=== PATIENT | male | born 1950 | race African-American/Black ===

== ENCOUNTER 2017-05-24 08:56 | Emergency (ER) | payer OTHER ==
[~2017-05-24] VITALS: Ht 175.3 cm; Wt 110.0 kg
[~2017-05-24 08:56] MED LIST: ALLO300T2 PO; ATEN50TA PO; DOXA8TAB65 PO; EZET10TA3 PO; FENO200C8 PO; GABA-526 PO; GABA300C16 PO; GLIM4TAB PO; INSU100C5 SQ; METF500T4 PO; TELM80TA2 PO; VERA120C9 PO
[2017-05-24 09:03] VITALS: Ht 175.3 cm; Wt 110.0 kg
[2017-05-24] MEDS ORDERED: ASPIRIN 325 MG TAB PO STA (09:59)
[2017-05-24] MEDS ORDERED: NITROGLYCERIN (SL) 0.4 MG TAB SL PRN (10:00)
[2017-05-24] MEDS ORDERED: VALS80TA2 PO (10:36)
[2017-05-24] MEDS ORDERED: VERA240T94 PO (10:37)
[2017-05-24] MEDS ORDERED: LANT3I SC (10:37)
[2017-05-24] MEDS ORDERED: ATOR20TA38 PO (10:37)
[2017-05-24] MEDS ORDERED: METF1000 PO (10:38)
[2017-05-24 10:42] LABS: ADD SCAN DIFF NO
[2017-05-24 10:52] LABS: BASOPHILS % 0.8 % (0.0-2.0); EOSINOPHILS # 0.1 10^3/ul (0.0-0.5); EOSINOPHILS % 2.4 % (0.0-7.0); HEMATOCRIT 37.4 % (42.0-52.0); HEMOGLOBIN 12.2 g/dl (14.0-18.0); LYMPHOCYTES # 1.7 10^3/ul (0.8-2.9); MEAN CORPUSCULAR HEMOGLOBIN 22.3 pg (29.0-33.0); MEAN CORPUSCULAR HGB CONC 32.6 g/dl (32.0-37.0); MEAN CORPUSCULAR VOLUME 68.5 fl (82.0-101.0); MEAN PLATELET VOLUME 9.8 fl (7.4-10.4); MONOCYTE # 0.4 10^3/ul (0.3-0.9); MONOCYTES % 8.1 % (0.0-11.0); NEUTROPHIL # 3.1 10^3/ul (1.6-7.5); NEUTROPHILS % 57.3 % (39.0-77.0); PLATELET COUNT 212 10^3/UL (140-415); RED BLOOD COUNT 5.46 10^6/ul (4.70-6.10); RED CELL DISTRIBUTION WIDTH 15.3 % (11.5-14.5); WHITE BLOOD COUNT 5.3 10^3/ul (4.8-10.8)
[2017-05-24 11:16] LABS: ALANINE AMINOTRANSFERASE 30 IU/L (13-69); ALBUMIN 4.3 g/dl (3.3-4.9); ALBUMIN/GLOBULIN RATIO 1.43; ALKALINE PHOSPHATASE 49 IU/L (42-121); ANION GAP 21 (8-16); ASPARTATE AMINO TRANSFERASE 19 IU/L (15-46); BILIRUBIN,INDIRECT 0.1 mg/dl (0-1.1); BILIRUBIN,TOTAL 0.1 mg/dl (0.2-1.3); BLOOD UREA NITROGEN 10 mg/dl (7-20); CALCIUM 9.8 mg/dl (8.4-10.2); CARBON DIOXIDE 25 mmol/L (21-31); CHLORIDE 101 mmol/L (97-110); CREATINE KINASE 312 IU/L (23-200); CREATININE 0.95 mg/dl (0.61-1.24); GLUCOSE 145 mg/dl (70-220); POTASSIUM 4.3 mmol/L (3.5-5.1); SODIUM 143 mmol/L (135-144); TOTAL PROTEIN 7.3 g/dl (6.1-8.1)
[2017-05-24 11:18] LABS: INR 0.93; PARTIAL THROMBOPLASTIN TIME 23.5 Sec (25.0-35.0); PROTIME 12.5 Sec (12.2-14.2)
[2017-05-24 11:27] LABS: B-TYPE NATRIURETIC PEPTIDE 87 PG/ML (0-125)
[2017-05-24 11:28] LABS: CK-MB 1.52 ng/ml (0.0-2.4); TROPONIN-I < 0.012 ng/ml (0.00-0.12)
--- NOTE | 2017-05-24 12:14 | RADRPT ---
PROCEDURE: XR Chest AP portable CLINICAL INDICATION: Chest pain TECHNIQUE: An AP portable radiograph of the chest was submitted. COMPARISON: 05/16/2013 FINDINGS: Support Hardware: None Cardiovascular: The cardiovascular silhouette appears unremarkable. Lung Mejía: The lung mejía appear clear with no nodule, alveolar infiltrate, or interstitial promi nence evident. Pleural Spaces: No pneumothorax or pleural effusion is identified. Osseous Structures: The osseous structures appear intact. Soft Tissues: The soft tissues appear generous. IMPRESSION: Stable and unremarkable portable chest. Physician Gloria Date Time Electronically viewed and signed by Suze Hernández Physician on 05/24/2017 12:13 /
[2017-05-24] MEDS ORDERED: ONDANSETRON 4 MG INJ IV PRN ×2 (13:00→16:00)
[2017-05-24] MEDS ORDERED: ACETAMINOPHEN 325 MG TAB PO PRN ×2 (13:00→16:00)
[2017-05-24 13:01] VITALS: TEMP 98
--- NOTE | 2017-05-24 13:26 | RADRPT ---
PROCEDURE: CT Brain without contrast. CLINICAL INDICATION: Headache for 1 week. Dizziness. TECHNIQUE: A CT of the brain without contrast was performed utilizing axial sections from the skul l base through the vertex. The patient was scanned without intravenous contrast enhancement. Sagitta l and coronal reformatted images were obtained using the data from the axial images. Total exam DLP is 720.23 mGy-cm. CTDIvol is 44.77 mGy. One or more of the following dose reduction techniques we re used: Automated exposure control, adjustment of the mA and/or kV according to patient size, use o f iterative reconstruction technique. COMPARISON: None available FINDINGS: There is normal meza-white matter differentiation. The ventricles and cisterns are normal. There is no intracranial hemorrhage or space-occupying lesion. There is no skull fracture or lytic lesion. IMPRESSION: 1. Normal noncontrast CT scan of the brain. RPTAT: QQ .Wilfrid Fernandez MD, MD Date Time Electronically viewed and signed by .Wilfrid Fernandez MD, on 05/24/2017 13:26 .R/
--- NOTE | 2017-05-24 14:32 | ERA ---
ER Documentation Chief Complaint Date/Time DATE: 05/24/17 TIME: 14:26 Chief Complaint haskins, chest disconfort x 1 week, (TATY CHAVES) HPI This is a very pleasant 66-year-old -[place] male with a known history of insulin-dependent diabetes mellitus that presents to the emergency department complaining of a sudden onset of bilateral chest pain that has been intermittent for the past week indicates the pain was a sharp shooting pain however this morning upon awakening he indicated the pain in the chest became more of a dull ache and pressure-like sensation on the left side of his chest. He indicated there is no radiation of the chest pressure to the neck arm back or jaw. He also indicates for the past week since the onset of the chest discomfort he has been having a bilateral pulsating headache, with no change in vision, no neck pain, and he states this is not the worst headache of his life. He had a similar headache one month ago. He did have associated symptoms with the chest pain of nausea but denied any diaphoresis or emesis. He denies any recent travel or prolonged immobilization. He has no shortness of breath at rest or exertion. The patient was scheduled to see a bench molder on an outpatient basis in the next 2 weeks but given that his symptoms worsened he immediately came to the emergency department to be further evaluated. He has had insulin-dependent diabetes for the past 13 years and indicates he is compliant with his medications. He does not smoke tobacco. He stated the chest pain is 6 out of 10 in intensity with no alleviating or exacerbating factors. (TATY CHAVES) ROS All systems reviewed and are negative except as per history of present illness. (TATY CHAVES) Medications Home Meds Reported Medications Metformin Hcl* (Metformin Hcl*) 1,000 Mg Tablet, 1000 MG PO WITH BREAKFAST DINNE , #30 TAB 05/24/17 Insulin Glargine* (Lantus*) 100 Unit/Ml Soln, 52 UNIT SC QHS, #1 VIAL 05/24/17 Atorvastatin Calcium* (Atorvastatin Calcium*) 20 Mg Tablet, 20 MG PO QHS, #30 TAB 05/24/17 Verapamil Hcl* (Verapamil ER*) 240 Mg Tablet.er, 240 MG PO DAILY, TAB.SA 05/24/17 Valsartan* (Diovan*) 80 Mg Tablet, 80 MG PO DAILY, TAB 05/24/17 Atenolol* (Atenolol*) 50 Mg Tablet, 50 MG PO AM 02/16/13 Doxazosin Mesylate* (Doxazosin Mesylate*) 8 Mg Tablet, 8 MG PO HS 02/16/13 Discontinued Reported Medications Fenofibrate, Micronized* (Fenofibrate*) 200 Mg Capsule, 200 MG PO DAILY 02/16/13 Ezetimibe* (Zetia*) 10 Mg Tablet, 10 MG PO AM 02/16/13 Gabapentin* (Gabapentin*) 600 Mg Tablet, 600 MG PO HS 02/16/13 Gabapentin* (Gabapentin*) 300 Mg Capsule, 300 MG PO AM 02/16/13 Allopurinol* (Allopurinol*) 300 Mg Tablet, 300 MG PO AM 02/16/13 Verapamil Hcl* (Verapamil Hcl*) 120 Mg Cap24h.pel, 240 MG PO BID 02/16/13 Telmisartan (Micardis) 80 Mg Tablet, 80 MG PO AM 02/16/13 Insulin Glargine,Hum.rec.anlog (Lantus) 100 U/Ml Cartridge, 50 SQ HS 02/16/13 Glimepiride* (Glimepiride*) 4 Mg Tablet, 4 MG PO BID 02/16/13 Metformin* (Glucophage*) 500 Mg Tab, 500 MG PO BID 02/16/13 Allergies Allergies: Coded Allergies: No Known Allergy (Verified , 05/24/17) PMhx/Soc History of Surgery: No Anesthesia Reaction: No Hx Neurological Disorder: No Hx Respiratory Disorders: No Hx Cardiac Disorders: Yes (HTN, HIGH CHOLESTEROL) Hx Psychiatric Problems: No Hx Miscellaneous Medical Probl: Yes (MIGRAINES, GOUT, VERTIGO) Hx Alcohol Use: No (DRINKS BEER ONCE A WEEK) Hx Substance Use: No Hx Tobacco Use: No Smoking Status: Unknown if ever smoked (TATY CHAVES) Physical Exam Vitals Vital Signs Date Time Temp Pulse Resp B/P Pulse Ox O2 Delivery O2 Flow Rate FiO2 05/24/17 16:43 50 19 150/90 99 Nasal Cannula 2.0 05/24/17 13:01 98.0 48 16 152/97 99 Room Air 05/24/17 10:40 Nasal Cannula 2 05/24/17 09:03 98.1 51 18 146/83 99 (MARCO A ARELLANO A. ) Physical Exam Constitutional:Well-developed. Well-nourished. HEENT:Normocephalic. Atraumatic.Pupils were equal round reactive to light. Moist mucous membranes.No tonsillar exudates. Funduscopy exam shows sharp optic disc bilaterally venous pulsations are present Neck: No nuchal rigidity. No lymphadenopathy. No posterior cervical spine tenderness or step-offs. Respiratory: Not using accessory muscles of respiration.Lungs were clear to auscultation bilaterally. No rhonchi. No rales. No wheezing. Cardiovascular: Regular rate regular rhythm.No murmurs. No rubs were appreciated.S1, S2 normal. Distal pulses are palpable 2+ bilaterally. No reproducible chest wall tenderness crepitus or ecchymosis. GI: Abdomen was soft. Nontender. Non Distended. No pulsatile abdominal masses or bruits. No rebound. No guarding. Bowel sounds were present and normal. Muscle skeletal: Full range of motion of both the upper and lower extremities bilaterally.Normal muscle tone.No assymetrical calf tenderness or swelling. Skin: No petechia, no purpura. No lesions on the palms or the soles of the feet. No maculopapular rash. NEURO: Patient was alert, awake, orientated x3.No facial droop. Gait observed and normal with no ataxia.Speech had regular rate and rhythm. No focal neurological deficits. (TATY CHAVES) Result Diagram: 05/24/17 1034 05/24/17 1034 Results 24 hrs Laboratory Tests Test 05/24/17 10:34 White Blood Count 5.310^3/ul Red Blood Count 5.4610^6/ul Hemoglobin 12.2g/dl Hematocrit 37.4% Mean Corpuscular Volume 68.5fl Mean Corpuscular Hemoglobin 22.3pg Mean Corpuscular Hemoglobin Concent 32.6g/dl Red Cell Distribution Width 15.3% Platelet Count 00889^3/UL Mean Platelet Volume 9.8fl Neutrophils % 57.3% Lymphocytes % 31.0% Monocytes % 8.1% Eosinophils % 2.4% Basophils % 0.8% Nucleated Red Blood Cells % 0.0/100WBC Neutrophils # 3.110^3/ul Lymphocytes # 1.710^3/ul Monocytes # 0.410^3/ul Eosinophils # 0.110^3/ul Basophils # 0.010^3/ul Nucleated Red Blood Cells # 0.010^3/ul Prothrombin Time 12.5Sec Prothrombin Time Ratio 1.0 INR International Normalized Ratio 0.93 Activated Partial Thromboplast Time 23.5Sec Sodium Level 143mmol/L Potassium Level 4.3mmol/L Chloride Level 101mmol/L Carbon Dioxide Level 25mmol/L Anion Gap 21 Blood Urea Nitrogen 10mg/dl Creatinine 0.95mg/dl Glucose Level 145mg/dl Calcium Level 9.8mg/dl Total Bilirubin 0.1mg/dl Direct Bilirubin 0.00mg/dl Indirect Bilirubin 0.1mg/dl Aspartate Amino Transf (AST/SGOT) 19IU/L Alanine Aminotransferase (ALT/SGPT) 30IU/L Alkaline Phosphatase 49IU/L Creatine Kinase 312IU/L Creatine Kinase Index 0.5 Creatinine Kinase MB (Mass) 1.52ng/ml Troponin I < 0.012ng/ml B-Type Natriuretic Peptide 87PG/ML Total Protein 7.3g/dl Albumin 4.3g/dl Globulin 3.00g/dl Albumin/Globulin Ratio 1.43 Current Medications Medications (Trade) Dose Ordered Sig/Carie Route PRN Reason Start Time Stop Time Status Last Admin Dose Admin Aspirin (Aspirin) 325 mg ONCE STAT PO 05/24/17 09:59 05/24/17 10:01 DC 05/24/17 10:38 Nitroglycerin (Nitroglycerin (Sl Tab) 0.4 Mg) 1 tab Q5M UP TO 3 DOSES PRN SL CHEST PAIN 05/24/17 10:00 Ondansetron HCl (Zofran Inj) 4 mg ER BRIDGE PRN IV NAUSEA AND/OR VOMITING 05/24/17 13:00 05/25/17 12:59 Acetaminophen (Tylenol Tab) 650 mg ER BRIDGE PRN PO MILD PAIN/FEVER 05/24/17 13:00 05/25/17 12:59 Morphine Sulfate (morphine) 4 mg ONCE STAT IV 05/24/17 15:47 05/24/17 15:48 DC Ondansetron HCl (Zofran Inj) 4 mg ONCE STAT IV 05/24/17 15:47 05/24/17 15:48 DC Atenolol (Tenormin) 50 mg AM PO 05/25/17 09:00 Atorvastatin Calcium (Lipitor) 20 mg QHS PO 05/24/17 21:00 Doxazosin Mesylate (Cardura) 8 mg HS PO 05/24/17 21:00 Insulin Glargine (Lantus) 52 unit QHS SC 05/24/17 21:00 Metformin HCl (Glucophage) 1,000 mg WITH BREAKFAST DINNE PO 05/24/17 18:00 Valsartan (Diovan) 80 mg DAILY PO 05/25/17 09:00 Verapamil HCl 240 mg 240 mg DAILY PO 05/25/17 09:00 Sodium Chloride (NS) 1,000 ml @ 80 mls/hr [id number] IV 05/24/17 15:46 IV Flush (NS 3 ml) 3 ml PER PROTOCOL IV 05/24/17 16:00 Ondansetron HCl (Zofran Inj) 4 mg Q6H PRN IV NAUSEA AND/OR VOMITING 05/24/17 16:00 Acetaminophen (Tylenol Tab) 650 mg Q6H PRN PO PAIN LEVEL 1-3 OR FEVER 05/24/17 16:00 Acetaminophen (Tylenol Supp) 650 mg Q6H PRN [place] PAIN LEVEL 1-3 OR FEVER 05/24/17 16:00 Acetaminophen/ Hydrocodone Bitart ([place] (5/325)) 1 tab Q6H PRN PO MODERATE PAIN LEVEL 4-6 05/24/17 16:00 Acetaminophen/ Hydrocodone Bitart ([place] (5/325)) 2 tab Q6H PRN PO SEVERE PAIN LEVEL 7-10 05/24/17 16:00 Morphine Sulfate (morphine) 2 mg Q4H PRN IV SEVERE PAIN LEVEL 7-10 05/24/17 16:00 Docusate Sodium (Colace) 100 mg Q12H PRN PO CONSTIPATION 05/24/17 16:00 Magnesium Hydroxide (Milk Of Mag) 30 ml DAILY PRN PO CONSTIPATION 05/24/17 16:00 Bisacodyl (Dulcolax Supp) 10 mg DAILY PRN [place] CONSTIPATION 05/24/17 16:00 Pantoprazole (Protonix Iv) 40 mg DAILY@06 IV 05/25/17 06:00 Heparin Sodium (Porcine) (Heparin (5000 Units/0.5 ml)) 5,000 unit Q12 SC 05/24/17 21:00 Insulin Aspart (Novolog Insulin Pen) NOVOLOG *MILD* ALGORITHM WITH MEALS BEDTIME SC 05/24/17 18:00 Miscellaneous Information (* Miscellaneous Pharmacy Order) Discontinue all previ... ONCE ONCE XX 05/24/17 16:00 05/24/17 16:01 DC Miscellaneous Information 1 ea NOTE XX 05/24/17 16:00 Glucose (Glutose) 15 gm Q15M PRN PO DECREASED GLUCOSE 05/24/17 16:00 Glucose (Glutose) 22.5 gm Q15M PRN PO DECREASED GLUCOSE 05/24/17 16:00 Dextrose (D50w Syringe) 25 ml Q15M PRN IV DECREASED GLUCOSE 05/24/17 16:00 Dextrose (D50w Syringe) 50 ml Q15M PRN IV DECREASED GLUCOSE 05/24/17 16:00 Glucagon (Glucagen) 1 mg Q15M PRN IM DECREASED GLUCOSE 05/24/17 16:00 Glucose (Glutose) 15 gm Q15M PRN BUCCAL DECREASED GLUCOSE 05/24/17 16:00 (MARCO A ARELLANO DO) Procedures/MDM The patient presented to the emergency department with chest pain. My clinical evaluation and workup was to distinguish minor causes of chest pain from acute life threatening conditions such as myocardial infarction, pulmonary embolism, aortic dissection, esophageal rupture, cardiac tamponade. The patient was placed on a central office worker and continuous pulse oximetry. IV access established by nursing staff. The patient received 325 mg of aspirin and nitroglycerin. He does take 81 mg of baby aspirin on a daily basis. He stated this mildly improved his chest discomfort but did not completely resolve it. 12 Lead EKG tracing ordered and reviewed by myself showed: Sinus bradycardia 52 bpm and no arrhythmia. GA interval prolonged at 206 ms in all leads consistent with a first-degree AV block. QRS duration normal. No ST segment elevation No ST segment depression. No changes consistent with acute ischemia. I obtained a 1 view chest radiograph which showed no infiltrates no cardio megaly and no pulmonary vascular congestion. The patient also presented to the emergency department with a subacute headache that began within weeks of onset. My differential diagnosis included but was not limited to chronic subdural hematoma, brain tumor, brain abscess, chronic sinusitis, temporal arteritis, temporomandibular joint syndrome, psuedotumor cerebri, glaucoma, migrane, HTN, intracranial hemorrhage or cerebral ischemia. This was not the patients worse headache of their life. The patient had a complete neurologic and fundoscopic exam performed by myself that was normal with no focal neurological deficits or retinal hemorrhage. The patient stated this headache was not severe or distinct from other headaches and the history with the physical exam findings did not likely suggest SAH. Therefore, I did not feel it was clinically necessary to perform a lumbar puncture and CSF analysis. I obtained a CT scan of the patient's head which showed no acute intracerebral hemorrhage mass-effect or midline shift Given the patient's multiple comorbidities and high cardiac risk factors the patient will be admitted for observation to receive serial 12-lead EKG tracings and cardiac set of enzymes to the telemetry service under the care of the hospitalist Dr. Berkowitz (TATY CHAVES) Patient told the nurse he wants to leave [facility]. I did speak with the patient at bedside. His family is also at the bedside. The patient states he is tired of sitting here for several hours without getting up bed. I discussed with him the necessity to be admitted for the hospital for a cardiac workup. I did tell him that if he leaves the hospital he runs a risk of cardiac arrest and . The patient says he understands the risks and "all take that chance". I discussed with him signs and symptoms to call an ambulance for. Patient is awake and alert oriented and coherent to make decisions. His and daughter at the bedside. He agrees to sign the AMA form (MARCO A ARELLANO DO) Departure Diagnosis: Primary Impression: Chest pain in adult Additional Impression: Migraine headache Qualified Code: G43.019 - Intractable migraine without aura and without status migrainosus Condition: Stable TATY CHAVES May 24, 2017 14:32 MARCO A ARELLANO DO May 24, 2017 17:01
[2017-05-24] MEDS ORDERED: SOD CHLORIDE 0.9% 1,000 ML IV SCH (15:46)
[2017-05-24] MEDS ORDERED: ONDANSETRON 4 MG INJ IV STA (15:47)
[2017-05-24] MEDS ORDERED: morphine 4 MG/ML VIAL IV STA (15:47)
[2017-05-24] MEDS ORDERED: GLUCOSE GEL 15 GRAM TUBE BUCCAL PRN (16:00)
[2017-05-24] MEDS ORDERED: MAGNESIUM HYDROXIDE 30ML CUP PO PRN (16:00)
[2017-05-24] MEDS ORDERED: morphine 2 MG INJ IV PRN (16:00)
[2017-05-24] MEDS ORDERED: DOCUSATE SODIUM 100 MG CAP PO PRN (16:00)
[2017-05-24] MEDS ORDERED: BISACODYL 10 MG SUPP PR PRN (16:00)
[2017-05-24] MEDS ORDERED: HYDROCODONE/APAP (5/325) TAB PO PRN ×2 (16:00)
[2017-05-24] MEDS ORDERED: GLUCOSE GEL 15 GRAM TUBE PO PRN ×2 (16:00)
[2017-05-24] MEDS ORDERED: GLUCAGON 1 MG INJ IM PRN (16:00)
[2017-05-24] MEDS ORDERED: DEXTROSE 50% 50 ML SYRINGE IV PRN ×2 (16:00)
[2017-05-24] MEDS ORDERED: NACL 0.9% 3 ML SYG IV SCH (16:00)
[2017-05-24] MEDS ORDERED: ACETAMINOPHEN 650 MG SUPP PR PRN (16:00)
--- NOTE | 2017-05-24 16:20 | HP ---
Date/Time of Note Date/Time of Note DATE: 05/24/17 TIME: 16:14 Assessment/Plan VTE Prophylaxis VTE Prophylaxis Intervention: heparin Lines/Catheters IV [facility]ine [facility] Assessment/Plan Chief Complaint/Hosp Course Assessment and plan 1. Chest pain. Patient noted with extensive history of heart disease. Will get engraver to follow. Follow-up on echocardiogram. Follow-up trend troponin levels. 2. Essential hypertension. Will resume antihypertensives and adjust as needed 3. Dyslipidemia. Follow-up on fasting lipid panel. Will resume statin medication. 4. Diabetes. Follow-up on A1c. Start on insulin regimen. 5. BPH. Will resume patient's doxazosin 6. Obesity. Weight reduction advised Discussed plan of care with Dr. Keating Admission process time greater than 30 minutes Problems: HPI/ROS Admit Date/Time Admit Date/Time Hx of Present Illness There is a 66-year-old male with history of hypertension, dyslipidemia, diabetes , BPH, migraines, extensive family history of coronary artery disease who came [facility] due to reports of chest pain. According to the patient had been having intermittent chest pain for the past 2 weeks that was 8 out of 10 in intensity that radiated from the right side of the chest to the left side of the chest and down his left arm. He did report that incidences usually occurred at night when he would lie down. He denied any reproducible chest pain upon palpation. Did report chest pain was also sharp-like in nature. He did come to [facility] due to the aformentiond issues. Upon examination he did have further troponin level drawn that was initially negative but he did noted to have creatinine kinase of 312. Additionally he was noted with some slight anemia with hemoglobin of 12.2 and hematocrit of 37.4. He remained afebrile. Blood pressure was seen as high as 152/97. He denied any shortness of breath on exertion or chest pain on exertion or nausea or vomiting or any other associated symptoms or any sick contacts prior to this incidence. We will evaluate him for the aformentiond issues. ROS 12 point review of systems obtained and entirely negative except that mentioned in history of present illness PMH/Family/Social Past Medical History Medical/surgical history hypertension, dyslipidemia, diabetes, BPH, migraines, extensive family history of coronary artery disease Social History Alcohol Use: none Smoking Status: Former smoker Drug Use: none Exam/Review of Systems Vital Signs Vitals Vital Signs Date Time Temp Pulse Resp B/P Pulse Ox O2 Delivery O2 Flow Rate FiO2 05/24/17 13:01 98.0 48 16 152/97 99 Room Air 05/24/17 10:40 2 Exam Constitutional: alert, oriented Psych: nl mood/affect, No anxiety Head: normocephalic Respiratory: clear to auscultation, normal air movement Cardiovascular: other (bradycardia) Gastrointestinal: non-tender, soft Musculoskeletal: nl extremities to inspection Neurological: FAMILY LAW MEDIATOR II-XII intact, nl mental status, nl speech Labs Result Diagram: 05/24/17 1034 05/24/17 1034 Medications Medications Current Medications Atenolol (Tenormin) 50 mg AM PO ; Start 05/25/17 at 09:00 Atorvastatin Calcium (Lipitor) 20 mg QHS PO ; Start 05/24/17 at 21:00 Doxazosin Mesylate (Cardura) 8 mg HS PO ; Start 05/24/17 at 21:00 Insulin Glargine (Lantus) 52 unit QHS SC ; Start 05/24/17 at 21:00 Valsartan (Diovan) 80 mg DAILY PO ; Start 05/25/17 at 09:00 Verapamil HCl 240 mg 240 mg DAILY PO ; Start 05/25/17 at 09:00 Sodium Chloride (NS) 1,000 ml @ 80 mls/hr [id number] IV ; Start 05/24/17 at 15:46 Ondansetron HCl (Zofran Inj) 4 mg Q6H PRN IV NAUSEA AND/OR VOMITING; Start at 16:00 Acetaminophen (Tylenol Tab) 650 mg Q6H PRN PO PAIN LEVEL 1-3 OR FEVER; Start at 16:00 Acetaminophen (Tylenol Supp) 650 mg Q6H PRN [place] PAIN LEVEL 1-3 OR FEVER; Start 05/24/17 at 16:00 Acetaminophen/ Hydrocodone Bitart ([place] (5/325)) 1 tab Q6H PRN PO MODERATE PAIN LEVEL 4-6; Start 05/24/17 at 16:00 Acetaminophen/ Hydrocodone Bitart ([place] (5/325)) 2 tab Q6H PRN PO SEVERE PAIN LEVEL 7-10; Start 05/24/17 at 16:00 Morphine Sulfate (morphine) 2 mg Q4H PRN IV SEVERE PAIN LEVEL 7-10; Start 05/24 at 16:00 Docusate Sodium (Colace) 100 mg Q12H PRN PO CONSTIPATION; Start 05/24/17 at 16: 00 Magnesium Hydroxide (Milk Of Mag) 30 ml DAILY PRN PO CONSTIPATION; Start at 16:00 Bisacodyl (Dulcolax Supp) 10 mg DAILY PRN [place] CONSTIPATION; Start 05/24/17 at 16 :00 Pantoprazole (Protonix Iv) 40 mg DAILY@06 IV ; Start 05/25/17 at 06:00 Heparin Sodium (Porcine) (Heparin (5000 Units/0.5 ml)) 5,000 unit Q12 SC ; Start 05/24/17 at 21:00 Miscellaneous Information 1 ea NOTE XX ; Start 05/24/17 at 16:00 Glucose (Glutose) 15 gm Q15M PRN PO DECREASED GLUCOSE; Start 05/24/17 at 16:00 Glucose (Glutose) 22.5 gm Q15M PRN PO DECREASED GLUCOSE; Start 05/24/17 at 16: 00 Dextrose (D50w Syringe) 25 ml Q15M PRN IV DECREASED GLUCOSE; Start 05/24/17 at 16:00 Dextrose (D50w Syringe) 50 ml Q15M PRN IV DECREASED GLUCOSE; Start 05/24/17 at 16:00 Glucagon (Glucagen) 1 mg Q15M PRN IM DECREASED GLUCOSE; Start 05/24/17 at 16:00 Glucose (Glutose) 15 gm Q15M PRN BUCCAL DECREASED GLUCOSE; Start 05/24/17 at 16 :00 LAURA DOS SANTOS May 24, 2017 16:20
[2017-05-24 16:43] VITALS: PULSE 50; RESP 19
[2017-05-24 17:14] VITALS: BP 130/82
[2017-05-24] MEDS ORDERED: metFORMIN 500 MG TAB PO SCH (18:00)
[2017-05-24] MEDS ORDERED: INSULIN ASPART [NOVOLOG] 3 ML PEN SC SCH (18:00)
[2017-05-24] MEDS ORDERED: ATORVASTATIN 20 MG TAB PO SCH (21:00)
[2017-05-24] MEDS ORDERED: INSULIN GLARGINE [LANtus] 3 ML PEN SC SCH (21:00)
[2017-05-24] MEDS ORDERED: HEPARIN 5,000 UNIT/0.5 ML VIAL SC SCH (21:00)
[2017-05-24] MEDS ORDERED: DOXAZOSIN 4 MG TAB PO SCH (21:00)
[2017-05-25] MEDS ORDERED: PANTOPRAZOLE 40 MG INJ IV SCH (06:00)
[2017-05-25] MEDS ORDERED: VALSARTAN 80 MG TAB PO SCH (09:00)
[2017-05-25] MEDS ORDERED: VERAPAMIL (SR) 240 MG TAB PO SCH (09:00)
[2017-05-25] MEDS ORDERED: ATENOLOL 50 MG TAB PO SCH (09:00)
== END 2017-05-24 17:14 | disposition left against medical advice (07) ==
LOC: E/R 08:56
DX: R07.9 Chest pain, unspecified (principal); G43.019 Migraine without aura, intractable, without status migrainosus; I10 Essential (primary) hypertension; E11.9 Type 2 diabetes mellitus without complications; Z79.4 Long term (current) use of insulin; Z79.84 Long term (current) use of oral hypoglycemic drugs
CPT/HCPCS: 70450; 71010; 80053; 82550; 82553; 83880; 84484; 85025; 85610; 85730; 93005; 99285; J1815; J7030

== ENCOUNTER 2019-03-05 13:04 | Inpatient (IN) | payer OTHER ==
[~2019-03-05] VITALS: Ht 175.3 cm; Wt 96.2 kg
[~2019-03-05 13:04] MED LIST changes: -ALLO300T2 PO; +ATOR20TA38 PO; -EZET10TA3 PO; -FENO200C8 PO; -GABA-526 PO; -GABA300C16 PO; -GLIM4TAB PO; -INSU100C5 SQ; +LANT3I SC; +METF100010 PO; -METF500T4 PO; -TELM80TA2 PO; +VALS80TA2 PO; -VERA120C9 PO; +VERA240T13 PO
[2019-03-05] MEDS ORDERED: NITROGLYCERIN 2% 1 GM OINT PKT TD STA (15:37)
[2019-03-05] MEDS ORDERED: ASPIRIN 81 MG TAB PO STA (15:37)
[2019-03-05] MEDS ORDERED: NITROGLYCERIN (SL) 0.4 MG TAB SL PRN ×2 (16:00→18:00)
[2019-03-05] MEDS ORDERED: LANT3I SC (16:21)
[2019-03-05] MEDS ORDERED: NABU-81 PO (16:22)
[2019-03-05] MEDS ORDERED: BACL10TA PO (16:22)
[2019-03-05] MEDS ORDERED: METF100010 PO (16:23)
[2019-03-05] MEDS ORDERED: VALS80TA2 PO (16:23)
[2019-03-05] MEDS ORDERED: ATOR40TA68 PO (16:23)
[2019-03-05] MEDS ORDERED: METO-335 PO (16:24)
[2019-03-05] MEDS ORDERED: VERA240T13 PO (16:24)
[2019-03-05] MEDS ORDERED: DOXA8TAB65 PO (16:25)
[2019-03-05] MEDS ORDERED: ACETAMINOPHEN 325 MG TAB PO PRN (17:00)
[2019-03-05] MEDS ORDERED: ONDANSETRON 4 MG INJ IV PRN ×2 (17:00→18:00)
[2019-03-05] MEDS ORDERED: BACLOFEN 10 MG TAB PO PRN (18:00)
[2019-03-05] MEDS ORDERED: HYDROCODONE/APAP (5/325) TAB PO PRN (18:00)
[2019-03-05] MEDS ORDERED: DOCUSATE SODIUM 100 MG CAP PO PRN (18:00)
[2019-03-05] MEDS ORDERED: NACL 0.9% 3 ML SYG IV SCH (18:00)
[2019-03-05] MEDS ORDERED: morphine 2 MG INJ IV PRN (18:00)
[2019-03-05] MEDS ORDERED: MAGNESIUM HYDROXIDE 30ML CUP PO PRN (18:00)
--- NOTE | 2019-03-05 18:01 | HP ---
Date/Time of Note Date/Time of Note DATE: 03/05/19 TIME: 17:52 Assessment/Plan VTE Prophylaxis SCD applied (from Nsg): Yes Pharmacological prophylaxis: heparin Lines/Catheters IV Catheter Type (from Nrsg): [place] Assessment/Plan Assessment/Plan 1. Acute atypical chest pain - Cardiology consulted for further recommendations given risk factors - Trop negative x1 and will continue to trend - initial EKG negative for acute ST changes - Nitro, O2, and morphine PRN - will check Lipid panel and TSH - ECHO ordered 2. Diabetes Mellitus - A1c ordered - continued home insulin - hold PO medications - ISS and accuchecks 3. HTN - continue home medications - adjust as needed 4. HLD - continue statin 5. Diet - Cardiac/Carb 6. DVT ppx - Heparin 7. Disposition - Admit to telemetry for ACS workup Result Diagram: 03/05/19 1559 03/05/19 1559 Results 24hrs Laboratory Tests Test 03/05/19 15:59 White Blood Count 8.7 # Red Blood Count 5.72 Hemoglobin 12.2 L Hematocrit 38.5 L Mean Corpuscular Volume 67.3 L Mean Corpuscular Hemoglobin 21.3 L Mean Corpuscular Hemoglobin Concent 31.7 L Red Cell Distribution Width 15.8 H Platelet Count 232 Mean Platelet Volume 9.9 Immature Granulocytes % 0.300 Neutrophils % 80.1 H Lymphocytes % 13.2 L Monocytes % 5.8 Eosinophils % 0.3 Basophils % 0.3 Nucleated Red Blood Cells % 0.0 Immature Granulocytes # 0.030 Neutrophils # 7.0 Lymphocytes # 1.2 Monocytes # 0.5 Eosinophils # 0.0 Basophils # 0.0 Nucleated Red Blood Cells # 0.0 Sodium Level 142 Potassium Level 4.7 Chloride Level 106 Carbon Dioxide Level 24 Anion Gap 12 Blood Urea Nitrogen 20 Creatinine 1.09 Est Glomerular Filtrat Rate mL/min > 60 Glucose Level 194 Calcium Level 10.1 Troponin I < 0.012 HPI/ROS Admit Date/Time Admit Date/Time 03/05/19 Hx of Present Illness 68 yo M with PMH DM, HTN, and HLD presented to ED with acute left sided chest pain that started at 12pm while he was sitting at rest. Patient describes pain as severe, as if someone was sitting on him, radiating to left arm, worse with movement, nothing made it better. Associated with shortness of breath. Patient states pain latest 1.5 hours and has not experienced this pain in the past. Patient denies any dizziness, headache, nausea, vomiting, abdominal pain, or urinary issues. Patient has chronic diarrhea and currently undergoing GI workup as outpatient. Patient states his mother and sister both in the 70s of cardiac issues, and his brother at 48 of [place]. He admits to seeing a Director Cardiac 2 years ago at [facility] but does not remember their name and has not followed as outpatient. ROS All 12 systems reviewed and pertinent positives as per HPI. All others negative. Constitutional: No chills, No fatigue Eyes: No discharge ENT: No congestion Respiratory: shortness of breath; No cough, No sputum, No wheezing Cardiovascular: chest pain; No lightheadedness, No palpitations Gastrointestinal: diarrhea; No pain, No constipation, No nausea, No vomiting Genitourinary: No bleeding, No discharge, No flank pain Musculoskeletal: No back pain, No neck pain Skin: No laceration, No rash Neurologic: No confusion, No dizziness, No focal-weakness, No headache, No syncope Endocrine: no complaints Lymphatic: no complaints Psychological: nl mood/affect Immunologic: no complaints PMH/Family/Social Past Medical History Medical History: diabetes, high cholesterol, hypertension Medications Current Medications Nitroglycerin (Nitroglycerin (Sl Tab) 0.4 Mg) 1 tab Q5M UP TO 3 DOSES PRN SL .CHEST PAIN; Start 03/05/19 at 16:00 Ondansetron HCl (Zofran Inj) 4 mg ER BRIDGE PRN IV NAUSEA/VOMITING; Start 03/05/19 at 17:00; Stop 03/06/19 at 16:59 Acetaminophen (Tylenol Tab) 650 mg ER BRIDGE PRN PO .MILD PAIN 1-3 OR TEMP; Start 03/05/19 at 17:00; Stop 03/06/19 at 16:59 Coded Allergies: No Known Allergy (Verified , 03/05/19) Past Surgical History Past Surgical Hx: no surgical history Family History Significant Family History: heart disease Social History Alcohol Use: rarely Smoking Status: Former smoker Drug Use: none Exam/Review of Systems Vital Signs Vitals Vital Signs Date Temp Pulse Resp B/P (MAP) Pulse Ox O2 O2 Flow FiO2 Time Delivery Rate 03/05/19 65 18 158/89 99 Room Air 16:06 (112) 03/05/19 2 16:00 03/05/19 98.5 13:08 Exam Exam General: Patient lying in bed in no acute distress,answering questions appropriately HEENT: Atraumatic, normocephalic. PERRL, EOM intact Neck: Supple with full range of motion. midline Chest: Nontender Lungs: clear to auscultation bilaterally. no wheezing or rhonchi Heart: Normal S1-S2, Regular rhythm and rate. No murmur, S3, or S4 Abdomen: Soft , nontender, nondistended , bowel sounds are present. No guarding no rebound tenderness , No masses or organomegaly. No costovertebral temporal angle mass Extremities: Normal to inspection, no edema no cyanosis Neurologic: CN 2-12 intact. no focal deficits appreciated. motor and sensory intact Additional Comments Home medications reviewed PROCEDURE: XR Chest. CLINICAL INDICATION: Chest pain TECHNIQUE: Single portable view of the chest was obtained COMPARISON: 05/16/13 FINDINGS: The heart is enlarged. There is mild left lower lobe linear atelectasis. The lungs are otherwise clear. There is mild elevation of the right diaphragm. There is no pleural effusion or pneumothorax. RPTAT: AA IMPRESSION: Mild Cardiomegaly. Mild left lower lobe linear atelectasis. .Van Calvin MD, MD Date Time Electronically viewed and signed by .Van Calvin MD, MD on 03/05/2019 15:55 NEIL WALLACE MD Mar 05, 2019 18:01
--- NOTE | 2019-03-05 18:10 | ERD ---
ER Documentation Chief Complaint Chief Complaint chest pain (pressure)x 1.5 hours HPI Patient is a 68-year-old male with hypertension and diabetes who presents with chest pain. The patient has left arm pain as well. Symptoms started today. The pain comes and goes and last at 1.5 hours. It associated with shortness of breath. He has had no treatment as of yet. Upon review of old medical records this is the patient's third visit to the ER since 2012. He says that his primary doctor is Dr. Rai. ROS All systems reviewed and are negative except as per history of present illness. Medications Home Meds Reported Medications Doxazosin Mesylate* (Doxazosin Mesylate*) 8 Mg Tablet, 8 MG PO HS, TAB 03/05/19 Verapamil Hcl* (Verapamil ER*) 240 Mg Tablet.er, 240 MG PO DAILY, TAB.SA 03/05/19 Metoprolol Succinate* (Toprol XL*) 25 Mg Tab.sr.24h, 25 MG PO DAILY, #30 TAB 03/05/19 Metformin Hcl* (Metformin Hcl*) 1,000 Mg Tablet, 1000 MG PO WITH BREAKFAST DINNE, #60 TAB 03/05/19 Valsartan* (Diovan*) 80 Mg Tablet, 80 MG PO DAILY, TAB 03/05/19 Atorvastatin* (Atorvastatin*) 40 Mg Tablet, 40 MG PO QHS, #30 TAB 03/05/19 Nabumetone* (Nabumetone*) 500 Mg Tablet, 500 MG PO NEEDED, TAB 03/05/19 Baclofen* (Baclofen*) 10 Mg Tablet, 10 MG PO NEEDED, TAB 03/05/19 Insulin Glargine* (Lantus*) 100 Unit/Ml Soln, 38 UNIT SC QHS, #1 VIAL 03/05/19 Discontinued Reported Medications Metformin Hcl* (Metformin Hcl*) 1,000 Mg Tablet, 1000 MG PO WITH BREAKFAST DINNE, #30 TAB 05/24/17 Insulin Glargine* (Lantus*) 100 Unit/Ml Soln, 52 UNIT SC QHS, #1 VIAL 05/24/17 Atorvastatin Calcium* (Atorvastatin Calcium*) 20 Mg Tablet, 20 MG PO QHS, #30 TAB 05/24/17 Verapamil Hcl* (Verapamil ER*) 240 Mg Tablet.er, 240 MG PO DAILY, TAB.SA 05/24/17 Valsartan* (Diovan*) 80 Mg Tablet, 80 MG PO DAILY, TAB 05/24/17 Atenolol* (Atenolol*) 50 Mg Tablet, 50 MG PO AM 02/16/13 Doxazosin Mesylate* (Doxazosin Mesylate*) 8 Mg Tablet, 8 MG PO HS 02/16/13 Allergies Allergies: Coded Allergies: No Known Allergy (Verified , 03/05/19) PMhx/Soc History of Surgery: No Anesthesia Reaction: No Hx Neurological Disorder: No Hx Respiratory Disorders: No Hx Cardiac Disorders: Yes (HTN, HIGH CHOLESTEROL) Hx Psychiatric Problems: No Hx Miscellaneous Medical Probl: Yes (MIGRAINES, GOUT, VERTIGO) Hx Alcohol Use: No (DRINKS BEER ONCE A WEEK) Hx Substance Use: No Hx Tobacco Use: No Smoking Status: Former smoker FmHx Family History: coronary disease Physical Exam Vitals Vital Signs Date Temp Pulse Resp B/P (MAP) Pulse Ox O2 O2 Flow FiO2 Time Delivery Rate 03/05/19 63 18 135/76 99 Nasal 2.0 18:01 (95) Cannula 03/05/19 65 18 158/89 99 Room Air 16:06 (112) 03/05/19 Nasal 2 16:00 Cannula 03/05/19 98.5 96 18 151/77 98 13:08 (101) Physical Exam Const: No acute distress Head: Atraumatic Eyes: Normal Conjunctiva ENT: Normal External Ears, Nose and Mouth. Neck: Full range of motion. No meningismus. Resp: Clear to auscultation bilaterally Cardio: Regular rate and rhythm, no murmurs Abd: Soft, non tender, non distended. Normal bowel sounds Skin: No petechiae or rashes Back: No midline or flank tenderness Ext: No cyanosis, or edema Neur: Awake and alert Psych: Normal Mood and Affect Result Diagram: 03/05/19 1559 03/05/19 1559 Results 24 hrs Laboratory Tests Test 03/05/19 15:59 White Blood Count 8.7 10^3/ul Red Blood Count 5.72 10^6/ul Hemoglobin 12.2 g/dl Hematocrit 38.5 % Mean Corpuscular Volume 67.3 fl Mean Corpuscular Hemoglobin 21.3 pg Mean Corpuscular Hemoglobin Concent 31.7 g/dl Red Cell Distribution Width 15.8 % Platelet Count 232 10^3/UL Mean Platelet Volume 9.9 fl Immature Granulocytes % 0.300 % Neutrophils % 80.1 % Lymphocytes % 13.2 % Monocytes % 5.8 % Eosinophils % 0.3 % Basophils % 0.3 % Nucleated Red Blood Cells % 0.0 /100WBC Immature Granulocytes # 0.030 10^3/ul Neutrophils # 7.0 10^3/ul Lymphocytes # 1.2 10^3/ul Monocytes # 0.5 10^3/ul Eosinophils # 0.0 10^3/ul Basophils # 0.0 10^3/ul Nucleated Red Blood Cells # 0.0 10^3/ul Sodium Level 142 mmol/L Potassium Level 4.7 mmol/L Chloride Level 106 mmol/L Carbon Dioxide Level 24 mmol/L Anion Gap 12 Blood Urea Nitrogen 20 mg/dl Creatinine 1.09 mg/dl Est Glomerular Filtrat Rate mL/min > 60 mL/min Glucose Level 194 mg/dl Calcium Level 10.1 mg/dl Troponin I < 0.012 ng/ml Current Medications Medications Dose Sig/Carie Start Time Status Last (Trade) Ordered Route PRN Stop Time Admin Dose Reason Admin Aspirin 162 mg ONCE STAT 03/05/19 DC 03/05/19 (Aspirin) PO 15:37 16:04 03/05/19 15:38 1 inch ONCE STAT 03/05/19 DC 03/05/19 Nitroglycerin TD 15:37 16:04 03/05/19 15:38 (Nitroglyceri n 2% Oint) 1 tab Q5M UP TO 3 03/05/19 Nitroglycerin DOSES PRN 16:00 SL .CHEST (Nitroglyceri PAIN n (Sl Tab) 0.4 Mg) Ondansetron 4 mg ER BRIDGE 03/05/19 DC HCl (Zofran PRN IV 17:00 Inj) NAUSEA/VOMITI 03/05/19 18:03 NG 650 mg ER BRIDGE 03/05/19 DC Acetaminophen PRN PO 17:00 (Tylenol .MILD PAIN 03/05/19 18:03 Tab) 1-3 OR TEMP 40 mg QHS PO 03/05/19 Atorvastatin 21:00 Calcium (Lipitor) Baclofen 10 mg TID PRN 03/05/19 (Lioresal) PO muscle 18:00 spasms Doxazosin 8 mg HS PO 03/05/19 Mesylate 21:00 (Cardura) Insulin 38 units QHS SC 03/05/19 Glargine 21:00 (Lantus) Metoprolol 25 mg DAILY PO 03/06/19 Succinate 09:00 (Toprol Xl) Verapamil 240 mg DAILY PO 03/06/19 HCl 09:00 (Isoptin Sr) 80 mg DAILY PO 03/06/19 UNV Miscellaneous 09:00 Information IV Flush 3 ml PER 03/05/19 (NS 3 ml) PROTOCOL IV 18:00 Ondansetron 4 mg Q6H PRN 03/05/19 HCl (Zofran IV 18:00 Inj) NAUSEA/VOMITI NG Aspirin 81 mg DAILY PO 03/06/19 (Aspirin) 09:00 1 tab Q5M PRN 03/05/19 Nitroglycerin SL .CHEST 18:00 PAIN (Nitroglyceri n (Sl Tab) 0.4 Mg) 650 mg Q6H PRN 03/05/19 Acetaminophen PO .PAIN 1-3 18:00 (Tylenol OR TEMP Tab) 1 tab Q6H PRN 03/05/19 Acetaminophen PO .PAIN 4-6 18:00 / Hydrocodone Bitart ([place] (5/325)) Morphine 2 mg Q4H PRN 03/05/19 Sulfate IV .PAIN 18:00 (morphine) 7-10 Docusate 100 mg Q12H PRN 03/05/19 Sodium PO 18:00 (Colace) .CONSTIPATION Magnesium 30 ml DAILY PRN 03/05/19 Hydroxide PO 18:00 (Milk Of Mag) .CONSTIPATION 40 mg DAILY@06 03/06/19 Pantoprazole PO 06:00 (Protonix Tab) Heparin 5,000 unit Q8 SC 03/05/19 Sodium 22:00 (Porcine) (Heparin (5000 Units/1ml)) Discontinue ONCE ONCE 03/05/19 DC Miscellaneous current oral XX 18:00 sulfonylur... 03/05/19 18:07 Information (* Miscellaneous Pharmacy Order) ONCE ONCE 03/05/19 DC Miscellaneous HYPOGLYCEMIA XX 18:00 PROTOCOL 03/05/19 18:07 Information w... (* Miscellaneous Pharmacy Order) Insulin NOVOLOG WITH MEALS 03/05/19 Aspart *MILD* BEDTIME SC 18:00 (Novolog ALGORITHM Insulin Pen) Discontinue ONCE ONCE 03/05/19 DC Miscellaneous all previ... XX 18:00 03/05/19 18:07 Information (* Miscellaneous Pharmacy Order) Procedures/MDM Chest x-ray read by radiology. EKG #1 read by me: Rate/Rhythm: Regular rate and rhythm at a normal rate Intervals: Normal Impression: Flipped T waves diffusely EKG #2 read by me: Rate/Rhythm: Regular rate and rhythm at a normal rate Intervals: Normal Impression: Flipped T waves diffusely Patient is a 68-year-old male with hypertension and diabetes who presents with chest pain. I am concerned for potential acute coronary syndrome. I doubt pneumonia, pneumothorax, pulmonary embolism, or aortic dissection. The patient will be admitted to the care of the panel team to a telemetry observation bed. I have let Dr. Rai that the patient is being admitted as well. The patient was given aspirin and nitroglycerin empirically. Departure Diagnosis: Primary Impression: Chest pain Chest pain type: unspecified Qualified Codes: R07.9 - Chest pain, unspeci fied Condition: DEBORAH Lamb MD Mar 05, 2019 18:10
[2019-03-05] MEDS ORDERED: GLUCOSE GEL 15 GRAM TUBE BUCCAL PRN (18:30)
[2019-03-05] MEDS ORDERED: DEXTROSE 50% 50 ML SYRINGE IV PRN ×2 (18:30)
[2019-03-05] MEDS ORDERED: GLUCOSE GEL 15 GRAM TUBE PO PRN ×2 (18:30)
[2019-03-05] MEDS ORDERED: GLUCAGON 1 MG INJ IM PRN (18:30)
--- NOTE | 2019-03-05 19:05 | CONS ---
Assessment/Plan Assessment/Plan Hospital Course (Demo Recall) Chest pain rule out acute [place] Hypertension diabetes dyslipidemia Strong family history of coronary artery disease Continue with aspirin and beta-migel. Blood pressure controlled. Diabetic management as per internal medicine. Repeat troponin to rule out myocardial infarction. Patient currently chest pain-free and has nitroglycerin paste on Plan for Lexiscan stress test tomorrow if troponins are negative. Troponin is positive we will proceed with a coronary angiography Thank you for his referral. We will continue to follow along with you MARGAUX HOPE MD [facility] Consultation Date/Type/Reason Admit Date/Time 03/05/19 Date of Consultation: Mar 05, 2019 Type of Consult Cardiology Reason for Consultation chest pain Requesting Provider: NEIL WALLACE MD Date/Time of Note DATE: 03/05/19 TIME: 19:01 Hx of Present Illness Interventional cardiology consultation note Chief complaint: Chest pain Reason for consult: Chest pain History of present illness: Thank you for this referral. This is a pleasant 68-year-old -[place] gentleman with history of diabetes hypertension dyslipidemia and strong family history of coronary artery disease who presented to emergency room with complaint of sudden onset of left- sided chest pain. Patient said he was sleeping when he woke up suddenly with left-sided chest pain was very severe lasted for some time but he has completely resolved now. He does not have any chest pain or pressure when he walks. He said he has had a stress test done before a few years ago which was normal Discussed with physician discussed with his Allergies: No known drug allergies Medications were reviewed as per medical reconciliation sheet Family history: Multiple family members including his brother at young age had a heart attack Social history: Quit smoking 1990 Past medical history: Diabetes hypertension dyslipidemia Review of system: Patient denies all others except for above-mentioned Past Medical History Home Meds Reported Medications Doxazosin Mesylate* (Doxazosin Mesylate*) 8 Mg Tablet, 8 MG PO HS, TAB 03/05/19 Verapamil Hcl* (Verapamil ER*) 240 Mg Tablet.er, 240 MG PO DAILY, TAB.SA 03/05/19 Metoprolol Succinate* (Toprol XL*) 25 Mg Tab.sr.24h, 25 MG PO DAILY, #30 TAB 03/05/19 Metformin Hcl* (Metformin Hcl*) 1,000 Mg Tablet, 1000 MG PO WITH BREAKFAST DINNE, #60 TAB 03/05/19 Valsartan* (Diovan*) 80 Mg Tablet, 80 MG PO DAILY, TAB 03/05/19 Atorvastatin* (Atorvastatin*) 40 Mg Tablet, 40 MG PO QHS, #30 TAB 03/05/19 Nabumetone* (Nabumetone*) 500 Mg Tablet, 500 MG PO NEEDED, TAB 03/05/19 Baclofen* (Baclofen*) 10 Mg Tablet, 10 MG PO NEEDED, TAB 03/05/19 Insulin Glargine* (Lantus*) 100 Unit/Ml Soln, 38 UNIT SC QHS, #1 VIAL 03/05/19 Discontinued Reported Medications Metformin Hcl* (Metformin Hcl*) 1,000 Mg Tablet, 1000 MG PO WITH BREAKFAST DINNE, #30 TAB 05/24/17 Insulin Glargine* (Lantus*) 100 Unit/Ml Soln, 52 UNIT SC QHS, #1 VIAL 05/24/17 Atorvastatin Calcium* (Atorvastatin Calcium*) 20 Mg Tablet, 20 MG PO QHS, #30 TAB 05/24/17 Verapamil Hcl* (Verapamil ER*) 240 Mg Tablet.er, 240 MG PO DAILY, TAB.SA 05/24/17 Valsartan* (Diovan*) 80 Mg Tablet, 80 MG PO DAILY, TAB 05/24/17 Atenolol* (Atenolol*) 50 Mg Tablet, 50 MG PO AM 02/16/13 Doxazosin Mesylate* (Doxazosin Mesylate*) 8 Mg Tablet, 8 MG PO HS 02/16/13 Medications Current Medications Nitroglycerin (Nitroglycerin (Sl Tab) 0.4 Mg) 1 tab Q5M UP TO 3 DOSES PRN SL .CHEST PAIN; Start 03/05/19 at 16:00 Atorvastatin Calcium (Lipitor) 40 mg QHS PO ; Start 03/05/19 at 21:00 Baclofen (Lioresal) 10 mg TID PRN PO muscle spasms; Start 03/05/19 at 18:00 Doxazosin Mesylate (Cardura) 8 mg HS PO ; Start 03/05/19 at 21:00 Insulin Glargine (Lantus) 38 units QHS SC ; Start 03/05/19 at 21:00 Metoprolol Succinate (Toprol Xl) 25 mg DAILY PO ; Start 03/06/19 at 09:00 Verapamil HCl (Isoptin Sr) 240 mg DAILY PO ; Start 03/06/19 at 09:00 Miscellaneous Information 80 mg DAILY PO ; Start 03/06/19 at 09:00; Status UNV IV Flush (NS 3 ml) 3 ml PER PROTOCOL IV ; Start 03/05/19 at 18:00 Ondansetron HCl (Zofran Inj) 4 mg Q6H PRN IV NAUSEA/VOMITING; Start 03/05/19 at 18:00 Aspirin (Aspirin) 81 mg DAILY PO ; Start 03/06/19 at 09:00 Nitroglycerin (Nitroglycerin (Sl Tab) 0.4 Mg) 1 tab Q5M PRN SL .CHEST PAIN; Start 03/05/19 at 18:00 Acetaminophen (Tylenol Tab) 650 mg Q6H PRN PO .PAIN 1-3 OR TEMP; Start 03/05/19 at 18:00 Acetaminophen/ Hydrocodone Bitart ([place] (5/325)) 1 tab Q6H PRN PO .PAIN 4-6; Start 03/05/19 at 18:00 Morphine Sulfate (morphine) 2 mg Q4H PRN IV .PAIN 7-10; Start 03/05/19 at 18:00 Docusate Sodium (Colace) 100 mg Q12H PRN PO .CONSTIPATION; Start 03/05/19 at 18:00 Magnesium Hydroxide (Milk Of Mag) 30 ml DAILY PRN PO .CONSTIPATION; Start 03/05/19 at 18:00 Pantoprazole (Protonix Tab) 40 mg DAILY@06 PO ; Start 03/06/19 at 06:00 Heparin Sodium (Porcine) (Heparin (5000 Units/1ml)) 5,000 unit Q8 SC ; Start 03/05/19 at 22:00 Insulin Aspart (Novolog Insulin Pen) NOVOLOG *MILD* ALGORITHM WITH MEALS BEDTIME SC ; Start 03/05/19 at 18:00 Miscellaneous Information 1 ea NOTE XX ; Start 03/05/19 at 18:30 Glucose (Glutose) 15 gm Q15M PRN PO DECREASED GLUCOSE; Start 03/05/19 at 18:30 Glucose (Glutose) 22.5 gm Q15M PRN PO DECREASED GLUCOSE; Start 03/05/19 at 18:30 Dextrose (D50w Syringe) 25 ml Q15M PRN IV DECREASED GLUCOSE; Start 03/05/19 at 18:30 Dextrose (D50w Syringe) 50 ml Q15M PRN IV DECREASED GLUCOSE; Start 03/05/19 at 18:30 Glucagon (Glucagen) 1 mg Q15M PRN IM DECREASED GLUCOSE; Start 03/05/19 at 18:30 Glucose (Glutose) 15 gm Q15M PRN BUCCAL DECREASED GLUCOSE; Start 03/05/19 at 18:30 Allergies: Coded Allergies: No Known Allergy (Verified , 03/05/19) Past Surgical History Past Surgical Hx: no surgical history Social History Alcohol Use: rarely Smoking Status: Former smoker Drug Use: none Exam/Review of Systems Vital Signs Vitals Vital Signs Date Temp Pulse Resp B/P (MAP) Pulse Ox O2 O2 Flow FiO2 Time Delivery Rate 03/05/19 63 18 135/76 99 Nasal 2.0 18:01 (95) Cannula 03/05/19 98.5 13:08 Exam Exam General: no acute distress HEENT: NC/AT. pupils are equal. round. NECK: NO JVD. no stridor. CV: RRR. systolic murmur; no gallop or rubs. PULM: no wheezing or rhonchi. GI: SOFT, NT, ND, no rebound or guarding Extremity: trace B/L LE edema. no clubbing. neuro: awake and alert, OX3. Psych: calm and pleasant rectal: deferred : normal EKG is presented to normal sinus rhythm positive abnormalities Labs Result Diagram: 03/05/19 1559 03/05/19 1559 Results 24hrs Laboratory Tests Test 03/05/19 15:59 White Blood Count 8.7 # Red Blood Count 5.72 Hemoglobin 12.2 L Hematocrit 38.5 L Mean Corpuscular Volume 67.3 L Mean Corpuscular Hemoglobin 21.3 L Mean Corpuscular Hemoglobin Concent 31.7 L Red Cell Distribution Width 15.8 H Platelet Count 232 Mean Platelet Volume 9.9 Immature Granulocytes % 0.300 Neutrophils % 80.1 H Lymphocytes % 13.2 L Monocytes % 5.8 Eosinophils % 0.3 Basophils % 0.3 Nucleated Red Blood Cells % 0.0 Immature Granulocytes # 0.030 Neutrophils # 7.0 Lymphocytes # 1.2 Monocytes # 0.5 Eosinophils # 0.0 Basophils # 0.0 Nucleated Red Blood Cells # 0.0 Sodium Level 142 Potassium Level 4.7 Chloride Level 106 Carbon Dioxide Level 24 Anion Gap 12 Blood Urea Nitrogen 20 Creatinine 1.09 Est Glomerular Filtrat Rate mL/min > 60 Glucose Level 194 Hemoglobin A1c 9.1 H Calcium Level 10.1 Troponin I < 0.012 Medications Medications Current Medications Nitroglycerin (Nitroglycerin (Sl Tab) 0.4 Mg) 1 tab Q5M UP TO 3 DOSES PRN SL .CHEST PAIN; Start 03/05/19 at 16:00 Atorvastatin Calcium (Lipitor) 40 mg QHS PO ; Start 03/05/19 at 21:00 Baclofen (Lioresal) 10 mg TID PRN PO muscle spasms; Start 03/05/19 at 18:00 Doxazosin Mesylate (Cardura) 8 mg HS PO ; Start 03/05/19 at 21:00 Insulin Glargine (Lantus) 38 units QHS SC ; Start 03/05/19 at 21:00 Metoprolol Succinate (Toprol Xl) 25 mg DAILY PO ; Start 03/06/19 at 09:00 Verapamil HCl (Isoptin Sr) 240 mg DAILY PO ; Start 03/06/19 at 09:00 Miscellaneous Information 80 mg DAILY PO ; Start 03/06/19 at 09:00; Status UNV IV Flush (NS 3 ml) 3 ml PER PROTOCOL IV ; Start 03/05/19 at 18:00 Ondansetron HCl (Zofran Inj) 4 mg Q6H PRN IV NAUSEA/VOMITING; Start 03/05/19 at 18:00 Aspirin (Aspirin) 81 mg DAILY PO ; Start 03/06/19 at 09:00 Nitroglycerin (Nitroglycerin (Sl Tab) 0.4 Mg) 1 tab Q5M PRN SL .CHEST PAIN; Start 03/05/19 at 18:00 Acetaminophen (Tylenol Tab) 650 mg Q6H PRN PO .PAIN 1-3 OR TEMP; Start 03/05/19 at 18:00 Acetaminophen/ Hydrocodone Bitart ([place] (5/325)) 1 tab Q6H PRN PO .PAIN 4-6; Start 03/05/19 at 18:00 Morphine Sulfate (morphine) 2 mg Q4H PRN IV .PAIN 7-10; Start 03/05/19 at 18:00 Docusate Sodium (Colace) 100 mg Q12H PRN PO .CONSTIPATION; Start 03/05/19 at 18:00 Magnesium Hydroxide (Milk Of Mag) 30 ml DAILY PRN PO .CONSTIPATION; Start 03/05/19 at 18:00 Pantoprazole (Protonix Tab) 40 mg DAILY@06 PO ; Start 03/06/19 at 06:00 Heparin Sodium (Porcine) (Heparin (5000 Units/1ml)) 5,000 unit Q8 SC ; Start 03/05/19 at 22:00 Insulin Aspart (Novolog Insulin Pen) NOVOLOG *MILD* ALGORITHM WITH MEALS BEDTIME SC ; Start 03/05/19 at 18:00 Miscellaneous Information 1 ea NOTE XX ; Start 03/05/19 at 18:30 Glucose (Glutose) 15 gm Q15M PRN PO DECREASED GLUCOSE; Start 03/05/19 at 18:30 Glucose (Glutose) 22.5 gm Q15M PRN PO DECREASED GLUCOSE; Start 03/05/19 at 18:30 Dextrose (D50w Syringe) 25 ml Q15M PRN IV DECREASED GLUCOSE; Start 03/05/19 at 18:30 Dextrose (D50w Syringe) 50 ml Q15M PRN IV DECREASED GLUCOSE; Start 03/05/19 at 18:30 Glucagon (Glucagen) 1 mg Q15M PRN IM DECREASED GLUCOSE; Start 03/05/19 at 18:30 Glucose (Glutose) 15 gm Q15M PRN BUCCAL DECREASED GLUCOSE; Start 03/05/19 at 18:30 MARGAUX HOPE MD Mar 05, 2019 19:05
[2019-03-05] MEDS: INSULIN ASPART [NOVOLOG] 3 ML PEN SC SCH ×2 (20:36→21:00)
[2019-03-05] MEDS: INSULIN GLARGINE [LANTus] (100 UNITS/ML) SYG SC SCH (21:43)
[2019-03-05 21:59] VITALS: PULSE 68
[2019-03-05 22:00] VITALS: BP 179/93; PULSE 59; RESP 20
[2019-03-05 22:06] VITALS: Ht 175.3 cm; Wt 96.2 kg
[2019-03-05] MEDS: ATORVASTATIN 40 MG TAB PO SCH (22:29)
[2019-03-05] MEDS: DOXAZOSIN 4 MG TAB PO SCH (22:29)
[2019-03-05] MEDS: HEPARIN 5,000 UNIT/1 ML VIAL SC SCH (22:34)
[2019-03-06] VITALS (11 sets, daily range): BP systolic 144–175; BP diastolic 72–97; PULSE 51–77; RESP 18–20
[2019-03-06] MEDS: ACETAMINOPHEN 325 MG TAB PO PRN ×2 (02:50→11:13)
[2019-03-06] MEDS ORDERED: hydrALAzine 20 MG INJ IV PRN (05:00)
[2019-03-06] MEDS: PANTOPRAZOLE (EC) 40 MG TAB PO SCH (06:25)
[2019-03-06] MEDS: HEPARIN 5,000 UNIT/1 ML VIAL SC SCH ×3 (06:31→22:07)
[2019-03-06] MEDS: INSULIN ASPART [NOVOLOG] 3 ML PEN SC SCH ×4 (07:55→20:44)
[2019-03-06] MEDS: METOPROLOL (XL) 25 MG TAB PO SCH (08:25)
[2019-03-06] MEDS: ASPIRIN 81 MG TAB PO SCH (08:25)
[2019-03-06] MEDS: VERAPAMIL (SR) 120 MG TAB PO SCH (08:25)
[2019-03-06] MEDS ORDERED: LOSARTAN 50 MG TAB PO SCH (09:00)
[2019-03-06] MEDS ORDERED: MAGNESIUM SULFATE 2 GM/50 ML 50 ML IVPB ONE (09:30)
[2019-03-06] MEDS ORDERED: REGADENOSON 0.4 MG/5 ML SYG ONE (10:10)
--- NOTE | 2019-03-06 10:19 | CONS ---
Consult Date/Type/Reason Admit Date/Time Mar 05, 2019 at 16:40 Initial Consult Date 03/05/19 Type of Consultation: cv Requesting Provider: NEIL WALLACE MD Date/Time of Note DATE: 03/06/19 TIME: 10:18 Subjective Cardiology follow-up progress note Subjective: Discussed with the staff. Patient with no chest pain or pressure now. He has been hypertensive still. No palpitation .Objective:. General: no acute distress HEENT: NC/AT. pupils are equal. round. NECK: NO JVD. no stridor. CV: RRR. systolic murmur; no gallop or rubs. PULM: no wheezing or rhonchi. GI: SOFT, NT, ND, no rebound or guarding Extremity: trace B/L LE edema. no clubbing. neuro: awake and alert, OX3. Psych: calm and pleasant rectal: deferred : normal Echocardiogram was reviewed. See my report Objective Vitals Vital Signs Date Temp Pulse Resp B/P (MAP) Pulse Ox O2 O2 Flow FiO2 Time Delivery Rate 03/06/19 57 08:00 03/06/19 98.9 20 165/92 96 Room Air 07:21 (116) 03/05/19 2.0 23:50 Intake and Output 03/05/19 03/05/19 03/06/19 1515:00 23:00 07:00 IntakeIntake Total 700 ml OutputOutput Total 1100 ml BalanceBalance -400 ml Results/Medications Result Diagram: 03/06/19 0325 03/06/19 0325 Results 24 hrs Laboratory Tests Test 03/05/19 15:59 03/05/19 20:25 03/05/19 21:18 03/05/19 21:42 White Blood Count 8.7 # Red Blood Count 5.72 Hemoglobin 12.2 L Hematocrit 38.5 L Mean Corpuscular 67.3 L Volume Mean Corpuscular 21.3 L Hemoglobin Mean Corpuscular 31.7 L Hemoglobin Concent Red Cell 15.8 H Distribution Width Platelet Count 232 Mean Platelet Volume 9.9 Immature 0.300 Granulocytes % Neutrophils % 80.1 H Lymphocytes % 13.2 L Monocytes % 5.8 Eosinophils % 0.3 Basophils % 0.3 Nucleated Red Blood 0.0 Cells % Immature 0.030 Granulocytes # Neutrophils # 7.0 Lymphocytes # 1.2 Monocytes # 0.5 Eosinophils # 0.0 Basophils # 0.0 Nucleated Red Blood 0.0 Cells # Sodium Level 142 Potassium Level 4.7 Chloride Level 106 Carbon Dioxide Level 24 Anion Gap 12 Blood Urea Nitrogen 20 Creatinine 1.09 Est Glomerular > 60 Filtrat Rate mL/min Glucose Level 194 Hemoglobin A1c 9.1 H Calcium Level 10.1 Troponin I < 0.012 < 0.012 Bedside Glucose 317 H 270 H Creatine Kinase 223 H Creatine Kinase 0.5 Index Creatinine Kinase MB 1.03 (Mass) Test 03/06/19 03:25 03/06/19 07:50 White Blood Count 6.0 # Red Blood Count 5.07 Hemoglobin 10.7 L Hematocrit 33.8 L Mean Corpuscular 66.7 L Volume Mean Corpuscular 21.1 L Hemoglobin Mean Corpuscular 31.7 L Hemoglobin Concent Red Cell 15.7 H Distribution Width Platelet Count 191 Mean Platelet Volume 9.2 Immature 0.300 Granulocytes % Neutrophils % 59.3 Lymphocytes % 29.0 Monocytes % 8.7 Eosinophils % 2.2 Basophils % 0.5 Nucleated Red Blood 0.0 Cells % Immature 0.020 Granulocytes # Neutrophils # 3.6 Lymphocytes # 1.7 Monocytes # 0.5 Eosinophils # 0.1 Basophils # 0.0 Nucleated Red Blood 0.0 Cells # Sodium Level 142 Potassium Level 4.0 Chloride Level 108 Carbon Dioxide Level 25 Anion Gap 9 Blood Urea Nitrogen 20 Creatinine 1.00 Est Glomerular > 60 Filtrat Rate mL/min Glucose Level 147 # Calcium Level 9.9 Magnesium Level 1.6 L Total Bilirubin 0.3 Direct Bilirubin 0.00 Indirect Bilirubin 0.3 Aspartate Amino 15 Transf (AST/SGOT) Alanine 23 Aminotransferase (AL T/SGPT) Alkaline Phosphatase 50 Creatine Kinase 213 H Creatine Kinase 0.5 Index Creatinine Kinase MB 1.02 (Mass) Troponin I < 0.012 Total Protein 6.5 Albumin 3.8 Globulin 2.70 Albumin/Globulin 1.40 Ratio Triglycerides Level 176 H Cholesterol Level 111 LDL Cholesterol, 43 Calculated HDL Cholesterol 33 Cholesterol/HDL 3.3 Ratio Thyroid Stimulating < 0.015 L Hormone (TSH) Bedside Glucose 107 Home Meds Reported Medications Doxazosin Mesylate* (Doxazosin Mesylate*) 8 Mg Tablet, 8 MG PO HS, TAB 03/05/19 Verapamil Hcl* (Verapamil ER*) 240 Mg Tablet.er, 240 MG PO DAILY, TAB.SA 03/05/19 Metoprolol Succinate* (Toprol XL*) 25 Mg Tab.sr.24h, 25 MG PO DAILY, #30 TAB 03/05/19 Metformin Hcl* (Metformin Hcl*) 1,000 Mg Tablet, 1000 MG PO WITH BREAKFAST D INNE, #60 TAB 03/05/19 Valsartan* (Diovan*) 80 Mg Tablet, 80 MG PO DAILY, TAB 03/05/19 Atorvastatin* (Atorvastatin*) 40 Mg Tablet, 40 MG PO QHS, #30 TAB 03/05/19 Nabumetone* (Nabumetone*) 500 Mg Tablet, 500 MG PO NEEDED, TAB 03/05/19 Baclofen* (Baclofen*) 10 Mg Tablet, 10 MG PO NEEDED, TAB 03/05/19 Insulin Glargine* (Lantus*) 100 Unit/Ml Soln, 38 UNIT SC QHS, #1 VIAL 03/05/19 Discontinued Reported Medications Metformin Hcl* (Metformin Hcl*) 1,000 Mg Tablet, 1000 MG PO WITH BREAKFAST DINNE, #30 TAB 05/24/17 Insulin Glargine* (Lantus*) 100 Unit/Ml Soln, 52 UNIT SC QHS, #1 VIAL 05/24/17 Atorvastatin Calcium* (Atorvastatin Calcium*) 20 Mg Tablet, 20 MG PO QHS, #30 TAB 05/24/17 Verapamil Hcl* (Verapamil ER*) 240 Mg Tablet.er, 240 MG PO DAILY, TAB.SA 05/24/17 Valsartan* (Diovan*) 80 Mg Tablet, 80 MG PO DAILY, TAB 05/24/17 Atenolol* (Atenolol*) 50 Mg Tablet, 50 MG PO AM 02/16/13 Doxazosin Mesylate* (Doxazosin Mesylate*) 8 Mg Tablet, 8 MG PO HS 02/16/13 Medications Current Medications Atorvastatin Calcium (Lipitor) 40 mg QHS PO Last administered on 03/05/19at 22:29; Admin Dose 40 MG; Start 03/05/19 at 21:00 Baclofen (Lioresal) 10 mg TID PRN PO muscle spasms; Start 03/05/19 at 18:00 Doxazosin Mesylate (Cardura) 8 mg HS PO Last administered on 03/05/19at 22:29; Admin Dose 8 MG; Start 03/05/19 at 21:00 Insulin Glargine (Lantus) 38 units QHS SC Last administered on 03/05/19at 21:43; Admin Dose 38 UNITS; Start 03/05/19 at 21:00 Metoprolol Succinate (Toprol Xl) 25 mg DAILY PO ; Start 03/06/19 at 09:00 Verapamil HCl (Isoptin Sr) 240 mg DAILY PO Last administered on 03/06/19 08:25; Admin Dose 240 MG; Start 03/06/19 at 09:00 Losartan Potassium (Cozaar) 50 mg DAILY PO Last administered on 03/06/19at 08:25; Admin Dose 50 MG; Start 03/06/19 at 09:00 IV Flush (NS 3 ml) 3 ml PER PROTOCOL IV ; Start 03/05/19 at 18:00 Ondansetron HCl (Zofran Inj) 4 mg Q6H PRN IV NAUSEA/VOMITING; Start 03/05/19 at 18:00 Aspirin (Aspirin) 81 mg DAILY PO Last administered on 03/06/19at 08:25; Admin Dose 81 MG; Start 03/06/19 at 09:00 Nitroglycerin (Nitroglycerin (Sl Tab) 0.4 Mg) 1 tab Q5M PRN SL .CHEST PAIN; Start 03/05/19 at 18:00 Acetaminophen (Tylenol Tab) 650 mg Q6H PRN PO .PAIN 1-3 OR TEMP Last administered on 03/06/19at 02:50; Admin Dose 650 MG; Start 03/05/19 at 18:00 Acetaminophen/ Hydrocodone Bitart ([place] (5/325)) 1 tab Q6H PRN PO .PAIN 4-6; Start 03/05/19 at 18:00 Morphine Sulfate (morphine) 2 mg Q4H PRN IV .PAIN 7-10; Start 03/05/19 at 18:00 Docusate Sodium (Colace) 100 mg Q12H PRN PO .CONSTIPATION; Start 03/05/19 at 18:00 Magnesium Hydroxide (Milk Of Mag) 30 ml DAILY PRN PO .CONSTIPATION; Start 03/05/19 at 18:00 Pantoprazole (Protonix Tab) 40 mg DAILY@06 PO Last administered on 03/06/19at 06:25; Admin Dose 40 MG; Start 03/06/19 at 06:00 Heparin Sodium (Porcine) (Heparin (5000 Units/1ml)) 5,000 unit Q8 SC Last administered on 03/06/19at 06:31; Admin Dose 5,000 UNIT; Start 03/05/19 at 22:00 Insulin Aspart (Novolog Insulin Pen) NOVOLOG *MILD* ALGORITHM WITH MEALS BEDT KAMALJIT SC Last administered on 03/05/19at 20:36; Admin Dose 5 UNIT; Start 03/05/19 at 18:00 Miscellaneous Information 1 ea NOTE XX ; Start 03/05/19 at 18:30 Glucose (Glutose) 15 gm Q15M PRN PO DECREASED GLUCOSE; Start 03/05/19 at 18:30 Glucose (Glutose) 22.5 gm Q15M PRN PO DECREASED GLUCOSE; Start 03/05/19 at 18:30 Dextrose (D50w Syringe) 25 ml Q15M PRN IV DECREASED GLUCOSE; Start 03/05/19 at 18:30 Dextrose (D50w Syringe) 50 ml Q15M PRN IV DECREASED GLUCOSE; Start 03/05/19 at 18:30 Glucagon (Glucagen) 1 mg Q15M PRN IM DECREASED GLUCOSE; Start 03/05/19 at 18:30 Glucose (Glutose) 15 gm Q15M PRN BUCCAL DECREASED GLUCOSE; Start 03/05/19 at 18:30 Hydralazine HCl (Apresoline) 10 mg Q4H PRN IV SBP > 170; Start 03/06/19 at 05:00 Magnesium Sulfate 50 ml @ 25 mls/hr ONCE ONCE IVPB ; Start 03/06/19 at 09:30; Stop 03/06/19 at 11:29 Assessment/Plan Hospital Course (Demo Recall) Chest pain rule out acute ME Hypertension diabetes dyslipidemia Strong family history of coronary artery disease Recommendation: Continue with aspirin and beta-migel. Blood pressure control will inc losartan 100 qd Diabetic management as per internal medicine. Echo shows normal LV systolic function. Recommend aggressive risk factor modification Plan for Lexiscan stress test today Thank you for his referral. We will continue to follow along with you MARGAUX HOPE MD [facility] MARGAUX HOPE MD Mar 06, 2019 10:19
--- NOTE | 2019-03-06 10:25 | RADRPT ---
Echocardiogram Report Patient Name: WEI JOYPatient ID: [id number] : 1950 (68y 8m)Study Date: 03/06/2019 7:00:07 AM Gender: MAccession #: [id number] Tech: Larry Gilbert [facility] Location: [facility] Ref.Physician: NEIL WALLACE Height(Cm): BSA: Weight(Kg): Quality: AdequateAccount #: Procedures: Echocardiographic Report: Transthoracic echocardiogram with complete 2D, M-Mode, and doppler examination. Indications: Evaluate Left Ventricular function. Measurements: 2D/M Mode Doppler Measurement Value Normal Range Measurement Value Normal Range LVIDd 2D 4.8 [ 4.2 - 5.8 ] cm AV Peak Kenny 1.4 [ 100.0 - 170.0 ] cm/sec LVIDs 2D 2.8 [ 2.5 - 4.0 ] cm AV Peak PG 8.0 [ 2.0 - 9.0 ] mmHg LVPWd 2D 1.3 [ 0.6 - 1.0 ] cm LVOT Peak Kenny 1.2 [ 70.0 - 110.0 ] cm/sec IVSd 2D 1.2 [ 0.6 - 1.0 ] cm LVOT Peak PG 6.0 [ 2.0 - 6.0 ] mmHg AoR Diam 2D 3.2 [ 2.6 - 3.4 ] cm MV E Peak Kenny 0.5 [ 60.0 - 130.0 ] cm/sec EDV 2D 108.0 [ 62.0 - 150.0 ] ml MV A Peak Kenny 0.8 [ 100.0 - 120.0 ] cm/sec ESV 2D 30.1 [ 21.0 - 61.0 ] ml MV E/A 0.6 [ 0.8 - 1.5 ] ratio EF 2D 72.1 [ 52.0 - 72.0 ] percent MV Decel Time 165 [ 104 - 258 ] msec LA Dimen 2D 2.9 [ 3.0 - 4.0 ] cm Lat E` Kenny 0.1 [ 10.0 - 15.0 ] cm/sec Lateral E/E` 5.9 [ 1.0 - 2.0 ] ratio MV E/A 0.6 [ 0.8 - 1.5 ] ratio TR Peak Kenny 1.9 [ 100.0 - 280.0 ] cm/sec TR Peak PG 14.0 mmHg RVSP 24.0 [ 10.0 - 36.0 ] mmHg RA Pressure 10.0 mmHg Findings: Left Ventricle: Normal left ventricular systolic function. Normal left ventricular cavity size. Mild concentric left ventricular hypertrophy. Ejection fraction is visually estimated at 65-70 %. Tissue Doppler/Mitral Doppler indices are consistent with impaired relaxation (Stage I diastolic dysfunction). Right Ventricle: Normal right ventricular size. Normal right ventricular systolic function. Left Atrium: The left atrium is normal in size. Right Atrium: The right atrium is normal in size. Mitral Valve: Normal appearance and function of the mitral valve with trace physiologic regurgitation. Aortic Valve: No significant aortic stenosis or insufficiency. Aortic cusps appear mildly calcified. Trileaflet aortic valve. Tricuspid Valve: Normal appearance of the tricuspid valve. Estimated peak PA systolic pressure 24 mmHg. There is trace tricuspid regurgitation. Pulmonic Valve: Normal pulmonic valve appearance. Pericardium: Normal pericardium with no significant pericardial effusion. Aorta: Normal aortic root. IVC: Normal size and normal respiratory collapse consistent with normal right atrial pressure. Conclusions: Normal left ventricular systolic function. Normal left ventricular cavity size. Mild concentric left ventricular hypertrophy. Ejection fraction is visually estimated at 65-70 %. Tissue Doppler/Mitral Doppler indices are consistent with impaired relaxation (Stage I diastolic dysfunction). Normal appearance and function of the mitral valve with trace physiologic regurgitation. No significant aortic stenosis or insufficiency. Aortic cusps appear mildly calcified. Trileaflet aortic valve. Normal appearance of the tricuspid valve. Estimated peak PA systolic pressure 24 mmHg. There is trace tricuspid regurgitation. Electronically Signed By: Raymundo Ballesteros 2019-03-06 10:25:08 PDT
--- NOTE | 2019-03-06 10:54 | PN ---
Date/Time of Note Date/Time of Note DATE: 03/06/19 TIME: 10:54 Assessment/Plan VTE Prophylaxis Risk score (from Nsg)>0 risk: 2 SCD applied (from Nsg): Yes Pharmacological prophylaxis: heparin Lines/Catheters IV Catheter Type (from Nrsg): Saline Lock Assessment/Plan Assessment/Plan 1. Acute atypical chest pain - Cardiology consultation appreciated and awaiting lexiscan results from this am - negative troponins - initial EKG negative for acute ST changes - Nitro, O2, and morphine PRN - elevated TG but LDL within normal limits. will continue on statin - ECHO results reviewed. 2. Diabetes Mellitus - A1c noted - continued home insulin - hold PO medications - ISS and accuchecks 3. HTN - increased losartan to 100mg for better BP control 4. HLD - continue statin 5. Dispositionle - Lexiscan results pending Result Diagram: 03/06/19 0325 03/06/19 0325 Results 24hrs Laboratory Tests Test 03/05/19 15:59 03/05/19 20:25 03/05/19 21:18 03/05/19 21:42 White Blood Count 8.7 # Red Blood Count 5.72 Hemoglobin 12.2 L Hematocrit 38.5 L Mean Corpuscular 67.3 L Volume Mean Corpuscular 21.3 L Hemoglobin Mean Corpuscular 31.7 L Hemoglobin Concent Red Cell 15.8 H Distribution Width Platelet Count 232 Mean Platelet Volume 9.9 Immature 0.300 Granulocytes % Neutrophils % 80.1 H Lymphocytes % 13.2 L Monocytes % 5.8 Eosinophils % 0.3 Basophils % 0.3 Nucleated Red Blood 0.0 Cells % Immature 0.030 Granulocytes # Neutrophils # 7.0 Lymphocytes # 1.2 Monocytes # 0.5 Eosinophils # 0.0 Basophils # 0.0 Nucleated Red Blood 0.0 Cells # Sodium Level 142 Potassium Level 4.7 Chloride Level 106 Carbon Dioxide Level 24 Anion Gap 12 Blood Urea Nitrogen 20 Creatinine 1.09 Est Glomerular > 60 Filtrat Rate mL/min Glucose Level 194 Hemoglobin A1c 9.1 H Calcium Level 10.1 Troponin I < 0.012 < 0.012 Bedside Glucose 317 H 270 H Creatine Kinase 223 H Creatine Kinase 0.5 Index Creatinine Kinase MB 1.03 (Mass) Test 03/06/19 03:25 03/06/19 07:50 White Blood Count 6.0 # Red Blood Count 5.07 Hemoglobin 10.7 L Hematocrit 33.8 L Mean Corpuscular 66.7 L Volume Mean Corpuscular 21.1 L Hemoglobin Mean Corpuscular 31.7 L Hemoglobin Concent Red Cell 15.7 H Distribution Width Platelet Count 191 Mean Platelet Volume 9.2 Immature 0.300 Granulocytes % Neutrophils % 59.3 Lymphocytes % 29.0 Monocytes % 8.7 Eosinophils % 2.2 Basophils % 0.5 Nucleated Red Blood 0.0 Cells % Immature 0.020 Granulocytes # Neutrophils # 3.6 Lymphocytes # 1.7 Monocytes # 0.5 Eosinophils # 0.1 Basophils # 0.0 Nucleated Red Blood 0.0 Cells # Sodium Level 142 Potassium Level 4.0 Chloride Level 108 Carbon Dioxide Level 25 Anion Gap 9 Blood Urea Nitrogen 20 Creatinine 1.00 Est Glomerular > 60 Filtrat Rate mL/min Glucose Level 147 # Calcium Level 9.9 Magnesium Level 1.6 L Total Bilirubin 0.3 Direct Bilirubin 0.00 Indirect Bilirubin 0.3 Aspartate Amino 15 Transf (AST/SGOT) Alanine 23 Aminotransferase (AL T/SGPT) Alkaline Phosphatase 50 Creatine Kinase 213 H Creatine Kinase 0.5 Index Creatinine Kinase MB 1.02 (Mass) Troponin I < 0.012 Total Protein 6.5 Albumin 3.8 Globulin 2.70 Albumin/Globulin 1.40 Ratio Triglycerides Level 176 H Cholesterol Level 111 LDL Cholesterol, 43 Calculated HDL Cholesterol 33 Cholesterol/HDL 3.3 Ratio Thyroid Stimulating < 0.015 L Hormone (TSH) Bedside Glucose 107 Subjective 24 Hr Interval Summary Free Text/Dictation Patient denies any acute chest pain since admission. No overnight events. Exam/Review of Systems Exam Vitals Vital Signs Date Temp Pulse Resp B/P (MAP) Pulse Ox O2 O2 Flow FiO2 Time Delivery Rate 03/06/19 Nasal 2.0 08:15 Cannula 03/06/19 57 08:00 03/06/19 98.9 20 165/92 96 07:21 (116) Intake and Output 03/05/19 03/05/19 03/06/19 1515:00 23:00 07:00 IntakeIntake Total 700 ml OutputOutput Total 1100 ml BalanceBalance -400 ml Exam General: Patient lying in bed in no acute distress, answering questions appropriately Chest: Nontender Lungs: clear to auscultation bilaterally. no wheezing or rhonchi Heart: Normal S1-S2, Regular rhythm and rate. No murmur, S3, or S4 Abdomen: Soft , nontender, nondistended , bowel sounds are present. No guarding no rebound tenderness Extremities: Normal to inspection, no edema no cyanosis Results Results 24hrs Laboratory Tests Test 03/05/19 15:59 03/05/19 20:25 03/05/19 21:18 03/05/19 21:42 White Blood Count 8.7 # Red Blood Count 5.72 Hemoglobin 12.2 L Hematocrit 38.5 L Mean Corpuscular 67.3 L Volume Mean Corpuscular 21.3 L Hemoglobin Mean Corpuscular 31.7 L Hemoglobin Concent Red Cell 15.8 H Distribution Width Platelet Count 232 Mean Platelet Volume 9.9 Immature 0.300 Granulocytes % Neutrophils % 80.1 H Lymphocytes % 13.2 L Monocytes % 5.8 Eosinophils % 0.3 Basophils % 0.3 Nucleated Red Blood 0.0 Cells % Immature 0.030 Granulocytes # Neutrophils # 7.0 Lymphocytes # 1.2 Monocytes # 0.5 Eosinophils # 0.0 Basophils # 0.0 Nucleated Red Blood 0.0 Cells # Sodium Level 142 Potassium Level 4.7 Chloride Level 106 Carbon Dioxide Level 24 Anion Gap 12 Blood Urea Nitrogen 20 Creatinine 1.09 Est Glomerular > 60 Filtrat Rate mL/min Glucose Level 194 Hemoglobin A1c 9.1 H Calcium Level 10.1 Troponin I < 0.012 < 0.012 Bedside Glucose 317 H 270 H Creatine Kinase 223 H Creatine Kinase 0.5 Index Creatinine Kinase MB 1.03 (Mass) Test 03/06/19 03:25 03/06/19 07:50 White Blood Count 6.0 # Red Blood Count 5.07 Hemoglobin 10.7 L Hematocrit 33.8 L Mean Corpuscular 66.7 L Volume Mean Corpuscular 21.1 L Hemoglobin Mean Corpuscular 31.7 L Hemoglobin Concent Red Cell 15.7 H Distribution Width Platelet Count 191 Mean Platelet Volume 9.2 Immature 0.300 Granulocytes % Neutrophils % 59.3 Lymphocytes % 29.0 Monocytes % 8.7 Eosinophils % 2.2 Basophils % 0.5 Nucleated Red Blood 0.0 Cells % Immature 0.020 Granulocytes # Neutrophils # 3.6 Lymphocytes # 1.7 Monocytes # 0.5 Eosinophils # 0.1 Basophils # 0.0 Nucleated Red Blood 0.0 Cells # Sodium Level 142 Potassium Level 4.0 Chloride Level 108 Carbon Dioxide Level 25 Anion Gap 9 Blood Urea Nitrogen 20 Creatinine 1.00 Est Glomerular > 60 Filtrat Rate mL/min Glucose Level 147 # Calcium Level 9.9 Magnesium Level 1.6 L Total Bilirubin 0.3 Direct Bilirubin 0.00 Indirect Bilirubin 0.3 Aspartate Amino 15 Transf (AST/SGOT) Alanine 23 Aminotransferase (AL T/SGPT) Alkaline Phosphatase 50 Creatine Kinase 213 H Creatine Kinase 0.5 Index Creatinine Kinase MB 1.02 (Mass) Troponin I < 0.012 Total Protein 6.5 Albumin 3.8 Globulin 2.70 Albumin/Globulin 1.40 Ratio Triglycerides Level 176 H Cholesterol Level 111 LDL Cholesterol, 43 Calculated HDL Cholesterol 33 Cholesterol/HDL 3.3 Ratio Thyroid Stimulating < 0.015 L Hormone (TSH) Bedside Glucose 107 Medications Medication Current Medications Atorvastatin Calcium (Lipitor) 40 mg QHS PO Last administered on 03/05/19 22:29; Admin Dose 40 MG; Start 03/05/19 at 21:00 Baclofen (Lioresal) 10 mg TID PRN PO muscle spasms; Start 03/05/19 at 18:00 Doxazosin Mesylate (Cardura) 8 mg HS PO Last administered on 03/05/19 22:29; Admin Dose 8 MG; Start 03/05/19 at 21:00 Insulin Glargine (Lantus) 38 units QHS SC Last administered on 03/05/19at 21:43; Admin Dose 38 UNITS; Start 03/05/19 at 21:00 Metoprolol Succinate (Toprol Xl) 25 mg DAILY PO ; Start 03/06/19 at 09:00 Verapamil HCl (Isoptin Sr) 240 mg DAILY PO Last administered on 03/06/19 08:25; Admin Dose 240 MG; Start 03/06/19 at 09:00 Losartan Potassium (Cozaar) 50 mg DAILY PO Last administered on 03/06/19 08:25; Admin Dose 50 MG; Start 03/06/19 at 09:00 IV Flush (NS 3 ml) 3 ml PER PROTOCOL IV ; Start 03/05/19 at 18:00 Ondansetron HCl (Zofran Inj) 4 mg Q6H PRN IV NAUSEA/VOMITING; Start 03/05/19 at 18:00 Aspirin (Aspirin) 81 mg DAILY PO Last administered on 03/06/19 08:25; Admin Dose 81 MG; Start 03/06/19 at 09:00 Nitroglycerin (Nitroglycerin (Sl Tab) 0.4 Mg) 1 tab Q5M PRN SL .CHEST PAIN; Start 03/05/19 at 18:00 Acetaminophen (Tylenol Tab) 650 mg Q6H PRN PO .PAIN 1-3 OR TEMP Last administered on 03/06/19at 02:50; Admin Dose 650 MG; Start 03/05/19 at 18:00 Acetaminophen/ Hydrocodone Bitart ([place] (5/325)) 1 tab Q6H PRN PO .PAIN 4-6; Start 03/05/19 at 18:00 Morphine Sulfate (morphine) 2 mg Q4H PRN IV .PAIN 7-10; Start 03/05/19 at 18:00 Docusate Sodium (Colace) 100 mg Q12H PRN PO .CONSTIPATION; Start 03/05/19 at 18:00 Magnesium Hydroxide (Milk Of Mag) 30 ml DAILY PRN PO .CONSTIPATION; Start 03/05/19 at 18:00 Pantoprazole (Protonix Tab) 40 mg DAILY@06 PO Last administered on 03/06/19at 06:25; Admin Dose 40 MG; Start 03/06/19 at 06:00 Heparin Sodium (Porcine) (Heparin (5000 Units/1ml)) 5,000 unit Q8 SC Last administered on 03/06/19at 06:31; Admin Dose 5,000 UNIT; Start 03/05/19 at 22:00 Insulin Aspart (Novolog Insulin Pen) NOVOLOG *MILD* ALGORITHM WITH MEALS BEDTIME SC Last administered on 03/05/19at 20:36; Admin Dose 5 UNIT; Start 03/05/19 at 18:00 Miscellaneous Information 1 ea NOTE XX ; Start 03/05/19 at 18:30 Glucose (Glutose) 15 gm Q15M PRN PO DECREASED GLUCOSE; Start 03/05/19 at 18:30 Glucose (Glutose) 22.5 gm Q15M PRN PO DECREASED GLUCOSE; Start 03/05/19 at 18:30 Dextrose (D50w Syringe) 25 ml Q15M PRN IV DECREASED GLUCOSE; Start 03/05/19 at 18:30 Dextrose (D50w Syringe) 50 ml Q15M PRN IV DECREASED GLUCOSE; Start 03/05/19 at 18:30 Glucagon (Glucagen) 1 mg Q15M PRN IM DECREASED GLUCOSE; Start 03/05/19 at 18:30 Glucose (Glutose) 15 gm Q15M PRN BUCCAL DECREASED GLUCOSE; Start 03/05/19 at 18:30 Hydralazine HCl (Apresoline) 10 mg Q4H PRN IV SBP > 170; Start 03/06/19 at 05:00 Magnesium Sulfate 50 ml @ 25 mls/hr ONCE ONCE IVPB ; Start 03/06/19 at 09:30; Stop 03/06/19 at 11:29 NEIL WALLACE MD Mar 06, 2019 10:54
--- NOTE | 2019-03-06 13:58 | SP ---
DATE OF PROCEDURE: 03/06/2019 PROCEDURE: Lexiscan stress test. INDICATION: Chest pain. DESCRIPTION: Lexiscan was performed as per protocol. FINDINGS: 1. Baseline EKG shows normal sinus rhythm, LVH with ST-T abnormality consistent with possible infero lateral ischemia. Heart rate at baseline is 67. Blood pressure of 180/96. 2. No significant ischemic ST-T changes seen. 3. No significant arrhythmias noted. CONCLUSION: Completion of Lexiscan as per protocol. See nuclear medicine result for final report. Dictated By: MARGAUX HOPE MD AV/JACOBY Conf#: [id number] DID#: [id number] CC: NEIL WALLACE MD;*End*
[2019-03-06] MEDS: DOXAZOSIN 4 MG TAB PO SCH (20:36)
[2019-03-06] MEDS: INSULIN GLARGINE [LANTus] (100 UNITS/ML) SYG SC SCH (20:46)
[2019-03-06] MEDS ORDERED: CLOPIDOGREL 75 MG TAB PO ONE (21:00)
[2019-03-06] MEDS: ATORVASTATIN 40 MG TAB PO SCH (22:02)
[2019-03-07] VITALS (20 sets, daily range): BP systolic 137–175; BP diastolic 78–99; PULSE 56–83; RESP 12–22
[2019-03-07] MEDS: PANTOPRAZOLE (EC) 40 MG TAB PO SCH (05:26)
[2019-03-07] MEDS: HEPARIN 5,000 UNIT/1 ML VIAL SC SCH ×3 (05:33→22:21)
[2019-03-07] MEDS: INSULIN ASPART [NOVOLOG] 3 ML PEN SC SCH ×4 (09:08→20:26)
[2019-03-07] MEDS: METOPROLOL (XL) 25 MG TAB PO SCH (09:24)
[2019-03-07] MEDS: ASPIRIN 81 MG TAB PO SCH (09:25)
[2019-03-07] MEDS: LOSARTAN 50 MG TAB PO SCH (09:25)
[2019-03-07] MEDS: VERAPAMIL (SR) 120 MG TAB PO SCH (09:25)
--- NOTE | 2019-03-07 09:41 | CONS ---
Consult Date/Type/Reason Admit Date/Time Mar 05, 2019 at 16:40 Initial Consult Date 03/05/19 Type of Consultation: cv Requesting Provider: NEIL WALLACE MD Date/Time of Note DATE: 03/07/19 TIME: 09:35 Subjective Cardiology follow-up progress note Subjective: Discussed with the staff. Patient with no chest pain or pressure now. No palpitation resutls fo stress test were discussed with the patient . Objective:. General: no acute distress HEENT: NC/AT. pupils are equal. round. NECK: NO JVD. no stridor. CV: RRR. systolic murmur; no gallop or rubs. PULM: no wheezing or rhonchi. GI: SOFT, NT, ND, no rebound or guarding Extremity: trace B/L LE edema. no clubbing. neuro: awake and alert, OX3. Psych: calm and pleasant rectal: deferred : normal Echocardiogram was reviewed. See my report Lexiscan stress test showed: 1. Positive myocardial perfusion scan. 2. Mild reversible ischemia along the basal to mid inferolateral wall. 3. Diminished inferior wall motion with depressed ejection fraction of 45%. Objective Vitals Vital Signs Date Temp Pulse Resp B/P (MAP) Pulse Ox O2 O2 Flow FiO2 Time Delivery Rate 03/07/19 62 08:15 03/07/19 98.6 20 160/90 92 Room Air 07:28 (113) 03/06/19 2.0 19:57 Intake and Output 03/06/19 03/06/19 03/07/19 1515:00 23:00 07:00 IntakeIntake Total 50 ml 1600 ml 850 ml OutputOutput Total 1500 ml 3 ml BalanceBalance 50 ml 100 ml 847 ml Results/Medications Result Diagram: 03/07/1922 03/07/19 0622 Results 24 hrs Laboratory Tests Test 03/06/19 12:23 03/06/19 17:14 03/06/19 20:35 03/07/19 06:22 Bedside Glucose 215 171 200 White Blood Count 5.9 Red Blood Count 5.60 Hemoglobin 11.9 L Hematocrit 37.3 L Mean Corpuscular 66.6 L Volume Mean Corpuscular 21.3 L Hemoglobin Mean Corpuscular 31.9 L Hemoglobin Concent Red Cell Distribution 16.3 H Width Platelet Count 233 # Mean Platelet Volume 9.9 Immature Granulocytes 0.200 % Neutrophils % 47.7 Lymphocytes % 38.8 Monocytes % 9.9 Eosinophils % 2.9 Basophils % 0.5 Nucleated Red Blood 0.0 Cells % Immature Granulocytes 0.010 # Neutrophils # 2.8 Lymphocytes # 2.3 Monocytes # 0.6 Eosinophils # 0.2 Basophils # 0.0 Nucleated Red Blood 0.0 Cells # Prothrombin Time 13.0 Prothrombin Time 1.0 Ratio INR International 0.97 Normalized Ratio Sodium Level 143 Potassium Level 4.3 Chloride Level 108 Carbon Dioxide Level 26 Anion Gap 9 Blood Urea Nitrogen 15 Creatinine 0.97 Est Glomerular > 60 Filtrat Rate mL/min Glucose Level 82 # Calcium Level 9.9 Magnesium Level 1.9 Total Bilirubin 0.3 Direct Bilirubin 0.00 Indirect Bilirubin 0.3 Aspartate Amino 18 Transf (AST/SGOT) Alanine 24 Aminotransferase (ALT /SGPT) Alkaline Phosphatase 46 Creatine Kinase 212 H Creatine Kinase Index 0.5 Creatinine Kinase MB 1.02 (Mass) Troponin I < 0.012 Total Protein 6.6 Albumin 4.2 Globulin 2.40 Albumin/Globulin 1.75 Ratio Test 03/07/19 08:35 Bedside Glucose 151 Home Meds Reported Medications Doxazosin Mesylate* (Doxazosin Mesylate*) 8 Mg Tablet, 8 MG PO HS, TAB 03/05/19 Verapamil Hcl* (Verapamil ER*) 240 Mg Tablet.er, 240 MG PO DAILY, TAB.SA 03/05/19 Metoprolol Succinate* (Toprol XL*) 25 Mg Tab.sr.24h, 25 MG PO DAILY, #30 TAB 03/05/19 Metformin Hcl* (Metformin Hcl*) 1,000 Mg Tablet, 1000 MG PO WITH BREAKFAST DINNE, #60 TAB 03/05/19 Valsartan* (Diovan*) 80 Mg Tablet, 80 MG PO DAILY, TAB 03/05/19 Atorvastatin* (Atorvastatin*) 40 Mg Tablet, 40 MG PO QHS, #30 TAB 03/05/19 Nabumetone* (Nabumetone*) 500 Mg Tablet, 500 MG PO NEEDED, TAB 03/05/19 Baclofen* (Baclofen*) 10 Mg Tablet, 10 MG PO NEEDED, TAB 03/05/19 Insulin Glargine* (Lantus*) 100 Unit/Ml Soln, 38 UNIT SC QHS, #1 VIAL 03/05/19 Discontinued Reported Medications Metformin Hcl* (Metformin Hcl*) 1,000 Mg Tablet, 1000 MG PO WITH BREAKFAST DINNE , #30 TAB 05/24/17 Insulin Glargine* (Lantus*) 100 Unit/Ml Soln, 52 UNIT SC QHS, #1 VIAL 05/24/17 Atorvastatin Calcium* (Atorvastatin Calcium*) 20 Mg Tablet, 20 MG PO QHS, #30 TAB 05/24/17 Verapamil Hcl* (Verapamil ER*) 240 Mg Tablet.er, 240 MG PO DAILY, TAB.SA 05/24/17 Valsartan* (Diovan*) 80 Mg Tablet, 80 MG PO DAILY, TAB 05/24/17 Atenolol* (Atenolol*) 50 Mg Tablet, 50 MG PO AM 02/16/13 Doxazosin Mesylate* (Doxazosin Mesylate*) 8 Mg Tablet, 8 MG PO HS 02/16/13 Medications Current Medications Atorvastatin Calcium (Lipitor) 40 mg QHS PO Last administered on 03/06/19at 22:02; Admin Dose 40 MG; Start 03/05/19 at 21:00 Baclofen (Lioresal) 10 mg TID PRN PO muscle spasms; Start 03/05/19 at 18:00 Doxazosin Mesylate (Cardura) 8 mg HS PO Last administered on 03/06/19at 20:36; Admin Dose 8 MG; Start 03/05/19 at 21:00 Insulin Glargine (Lantus) 38 units QHS SC Last administered on 03/06/19at 20:46; Admin Dose 38 UNITS; Start 03/05/19 at 21:00 Metoprolol Succinate (Toprol Xl) 25 mg DAILY PO Last administered on 03/07/19at 09:24; Admin Dose 25 MG; Start 03/06/19 at 09:00 Verapamil HCl (Isoptin Sr) 240 mg DAILY PO Last administered on 03/07/19at 09:25; Admin Dose 240 MG; Start 03/06/19 at 09:00 IV Flush (NS 3 ml) 3 ml PER PROTOCOL IV ; Start 03/05/19 at 18:00 Ondansetron HCl (Zofran Inj) 4 mg Q6H PRN IV NAUSEA/VOMITING; Start 03/05/19 at 18:00 Aspirin (Aspirin) 81 mg DAILY PO Last administered on 03/07/19at 09:25; Admin Do se 81 MG; Start 03/06/19 at 09:00 Nitroglycerin (Nitroglycerin (Sl Tab) 0.4 Mg) 1 tab Q5M PRN SL .CHEST PAIN; Start 03/05/19 at 18:00 Acetaminophen (Tylenol Tab) 650 mg Q6H PRN PO .PAIN 1-3 OR TEMP Last administered on 03/06/19at 11:13; Admin Dose 650 MG; Start 03/05/19 at 18:00 Acetaminophen/ Hydrocodone Bitart ([place] (5/325)) 1 tab Q6H PRN PO .PAIN 4-6; Start 03/05/19 at 18:00 Morphine Sulfate (morphine) 2 mg Q4H PRN IV .PAIN 7-10; Start 03/05/19 at 18:00 Docusate Sodium (Colace) 100 mg Q12H PRN PO .CONSTIPATION; Start 03/05/19 at 18:00 Magnesium Hydroxide (Milk Of Mag) 30 ml DAILY PRN PO .CONSTIPATION; Start 03/05/19 at 18:00 Pantoprazole (Protonix Tab) 40 mg DAILY@06 PO Last administered on 03/07/19at 05:26; Admin Dose 40 MG; Start 03/06/19 at 06:00 Heparin Sodium (Porcine) (Heparin (5000 Units/1ml)) 5,000 unit Q8 SC Last administered on 03/07/19at 05:33; Admin Dose 5,000 UNIT; Start 03/05/19 at 22:00 Insulin Aspart (Novolog Insulin Pen) NOVOLOG *MILD* ALGORITHM WITH MEALS BED TIME SC Last administered on 03/07/19at 09:08; Admin Dose 1 UNIT; Start 03/05/19 at 18:00 Miscellaneous Information 1 ea NOTE XX ; Start 03/05/19 at 18:30 Glucose (Glutose) 15 gm Q15M PRN PO DECREASED GLUCOSE; Start 03/05/19 at 18:30 Glucose (Glutose) 22.5 gm Q15M PRN PO DECREASED GLUCOSE; Start 03/05/19 at 18:30 Dextrose (D50w Syringe) 25 ml Q15M PRN IV DECREASED GLUCOSE; Start 03/05/19 at 18:30 Dextrose (D50w Syringe) 50 ml Q15M PRN IV DECREASED GLUCOSE; Start 03/05/19 at 18:30 Glucagon (Glucagen) 1 mg Q15M PRN IM DECREASED GLUCOSE; Start 03/05/19 at 18:30 Glucose (Glutose) 15 gm Q15M PRN BUCCAL DECREASED GLUCOSE; Start 03/05/19 at 18:30 Hydralazine HCl (Apresoline) 10 mg Q4H PRN IV SBP > 170; Start 03/06/19 at 05:00 Losartan Potassium (Cozaar) 100 mg DAILY PO Last administered on 03/07/19at 09:25; Admin Dose 100 MG; Start 03/07/19 at 09:00 Assessment/Plan Hospital Course (Demo Recall) Chest pain /acute coronary syndrome with abnormal stress test Hypertension diabetes dyslipidemia Strong family history of coronary artery disease Abnormal stress test Recommendation: Continue with aspirin and beta-migel. And losartan 100 qd Diabetic management as per internal medicine. Plan for left heart catheterization coronary angiogram possible percutaneous coronary intervention. Risks benefits and alternatives of procedure discussed with the patient in detail. Risks including but not limited to risk of infection vascular complication bleeding complication ID stroke arrhythmia renal failure etc. discussed with the patient. Patient has consented to procedure. Patient will be scheduled for today at 5:30 PM. We will keep n.p.o. from now. 1 dose of Plavix was given yesterday Since patient also has resistant hypertension on 3 different medication including beta-migel verapamil and losartan, he was advised to undergo also renal angiography and possible intervention. Risks and alternatives discussed with the patient again and he consents were obtained Thank you for his referral. We will continue to follow along with you MARGAUX HOPE MD [facility] MARGAUX HOPE MD March 07, 2019 09:41
[2019-03-07] MEDS ORDERED: DEXTROSE 5%-0.9% NACL 1,000 ML IV SCH (10:00)
--- NOTE | 2019-03-07 11:38 | PN ---
Date/Time of Note Date/Time of Note DATE: 03/07/19 TIME: 11:32 Assessment/Plan VTE Prophylaxis Risk score (from Nsg)>0 risk: 3 SCD applied (from Nsg): Yes Pharmacological prophylaxis: heparin Lines/Catheters IV Catheter Type (from Nrsg): [place] Lock Assessment/Plan Hospital Course S: no new issues O: General: A&O x3, answering questions appropriately HEENT: NC/ AT. PERRL. EOM intact Neck: supple CVS: S1, S2, RRR. no murmurs. no pain on chest wall palpation Lungs: CTA b/l. no wheezing or rhonchi Abd: soft, nontender, +BS Ext: moving all extremities skin: no rashes Lexiscan stress test showed: 1. Positive myocardial perfusion scan. 2. Mild reversible ischemia along the basal to mid inferolateral wall. 3. Diminished inferior wall motion with depressed ejection fraction of 45%. assessment and plan: 1. Acute chest pain - abn roge, planned for coronary angiogram -asa / statin / arb/ bb 2. Diabetes Mellitus - A1c 9.1 - continued home insulin - hold PO medications - ISS and accuchecks 3. HTN: still with suboptimal control -Resistant HTN per cardio -patient is also to undergo renal angiography 4. HLD - continue statin 5. Obesity: -counselled on weight loss Disposition: - coronary angiogram and renal angiography today at 5.30pm, f/u findings -patient is NPO and recieved 38 units of lantus last night, he's been started on d5 1/2 per cardio Result Diagram: 03/07/19 0622 03/07/19 0622 Results 24hrs Laboratory Tests Test 03/06/19 12:23 03/06/19 17:14 03/06/19 20:35 03/07/19 06:22 Bedside Glucose 215 171 200 White Blood Count 5.9 Red Blood Count 5.60 Hemoglobin 11.9 L Hematocrit 37.3 L Mean Corpuscular 66.6 L Volume Mean Corpuscular 21.3 L Hemoglobin Mean Corpuscular 31.9 L Hemoglobin Concent Red Cell Distribution 16.3 H Width Platelet Count 233 # Mean Platelet Volume 9.9 Immature Granulocytes 0.200 % Neutrophils % 47.7 Lymphocytes % 38.8 Monocytes % 9.9 Eosinophils % 2.9 Basophils % 0.5 Nucleated Red Blood 0.0 Cells % Immature Granulocytes 0.010 # Neutrophils # 2.8 Lymphocytes # 2.3 Monocytes # 0.6 Eosinophils # 0.2 Basophils # 0.0 Nucleated Red Blood 0.0 Cells # Prothrombin Time 13.0 Prothrombin Time 1.0 Ratio INR International 0.97 Normalized Ratio Sodium Level 143 Potassium Level 4.3 Chloride Level 108 Carbon Dioxide Level 26 Anion Gap 9 Blood Urea Nitrogen 15 Creatinine 0.97 Est Glomerular > 60 Filtrat Rate mL/min Glucose Level 82 # Calcium Level 9.9 Magnesium Level 1.9 Total Bilirubin 0.3 Direct Bilirubin 0.00 Indirect Bilirubin 0.3 Aspartate Amino 18 Transf (AST/SGOT) Alanine 24 Aminotransferase (ALT /SGPT) Alkaline Phosphatase 46 Creatine Kinase 212 H Creatine Kinase Index 0.5 Creatinine Kinase MB 1.02 (Mass) Troponin I < 0.012 Total Protein 6.6 Albumin 4.2 Globulin 2.40 Albumin/Globulin 1.75 Ratio Test 03/07/19 08:35 Bedside Glucose 151 Exam/Review of Systems Exam Vitals Vital Signs Date Temp Pulse Resp B/P (MAP) Pulse Ox O2 O2 Flow FiO2 Time Delivery Rate 03/07/19 62 08:15 03/07/19 98.6 20 160/90 92 Room Air 07:28 (113) 03/06/19 2.0 19:57 Intake and Output 03/06/19 03/06/19 03/07/19 1515:00 23:00 07:00 IntakeIntake Total 50 ml 1600 ml 850 ml OutputOutput Total 1500 ml 3 ml BalanceBalance 50 ml 100 ml 847 ml Results Results 24hrs Laboratory Tests Test 03/06/19 12:23 03/06/19 17:14 03/06/19 20:35 03/07/19 06:22 Bedside Glucose 215 171 200 White Blood Count 5.9 Red Blood Count 5.60 Hemoglobin 11.9 L Hematocrit 37.3 L Mean Corpuscular 66.6 L Volume Mean Corpuscular 21.3 L Hemoglobin Mean Corpuscular 31.9 L Hemoglobin Concent Red Cell Distribution 16.3 H Width Platelet Count 233 # Mean Platelet Volume 9.9 Immature Granulocytes 0.200 % Neutrophils % 47.7 Lymphocytes % 38.8 Monocytes % 9.9 Eosinophils % 2.9 Basophils % 0.5 Nucleated Red Blood 0.0 Cells % Immature Granulocytes 0.010 # Neutrophils # 2.8 Lymphocytes # 2.3 Monocytes # 0.6 Eosinophils # 0.2 Basophils # 0.0 Nucleated Red Blood 0.0 Cells # Prothrombin Time 13.0 Prothrombin Time 1.0 Ratio INR International 0.97 Normalized Ratio Sodium Level 143 Potassium Level 4.3 Chloride Level 108 Carbon Dioxide Level 26 Anion Gap 9 Blood Urea Nitrogen 15 Creatinine 0.97 Est Glomerular > 60 Filtrat Rate mL/min Glucose Level 82 # Calcium Level 9.9 Magnesium Level 1.9 Total Bilirubin 0.3 Direct Bilirubin 0.00 Indirect Bilirubin 0.3 Aspartate Amino 18 Transf (AST/SGOT) Alanine 24 Aminotransferase (ALT /SGPT) Alkaline Phosphatase 46 Creatine Kinase 212 H Creatine Kinase Index 0.5 Creatinine Kinase MB 1.02 (Mass) Troponin I < 0.012 Total Protein 6.6 Albumin 4.2 Globulin 2.40 Albumin/Globulin 1.75 Ratio Test 03/07/19 08:35 Bedside Glucose 151 Medications Medication Current Medications Atorvastatin Calcium (Lipitor) 40 mg QHS PO Last administered on 03/06/19 22:02; Admin Dose 40 MG; Start 03/05/19 at 21:00 Baclofen (Lioresal) 10 mg TID PRN PO muscle spasms; Start 03/05/19 at 18:00 Doxazosin Mesylate (Cardura) 8 mg HS PO Last administered on 03/06/19 20:36; Admin Dose 8 MG; Start 03/05/19 at 21:00 Insulin Glargine (Lantus) 38 units QHS SC Last administered on 03/06/19 20:46; Admin Dose 38 UNITS; Start 03/05/19 at 21:00 Metoprolol Succinate (Toprol Xl) 25 mg DAILY PO Last administered on 03/07/19 09:24; Admin Dose 25 MG; Start 03/06/19 at 09:00 Verapamil HCl (Isoptin Sr) 240 mg DAILY PO Last administered on 03/07/19 09:25; Admin Dose 240 MG; Start 03/06/19 at 09:00 IV Flush (NS 3 ml) 3 ml PER PROTOCOL IV ; Start 03/05/19 at 18:00 Ondansetron HCl (Zofran Inj) 4 mg Q6H PRN IV NAUSEA/VOMITING; Start 03/05/19 at 18:00 Aspirin (Aspirin) 81 mg DAILY PO Last administered on 5/1/19at 09:25; Admin Dose 81 MG; Start 03/06/19 at 09:00 Nitroglycerin (Nitroglycerin (Sl Tab) 0.4 Mg) 1 tab Q5M PRN SL .CHEST PAIN; Start 03/05/19 at 18:00 Acetaminophen (Tylenol Tab) 650 mg Q6H PRN PO .PAIN 1-3 OR TEMP Last administered on 03/06/19at 11:13; Admin Dose 650 MG; Start 03/05/19 at 18:00 Acetaminophen/ Hydrocodone Bitart ([place] (5/325)) 1 tab Q6H PRN PO .PAIN 4-6; Start 03/05/19 at 18:00 Morphine Sulfate (morphine) 2 mg Q4H PRN IV .PAIN 7-10; Start 03/05/19 at 18:00 Docusate Sodium (Colace) 100 mg Q12H PRN PO .CONSTIPATION; Start 03/05/19 at 18:00 Magnesium Hydroxide (Milk Of Mag) 30 ml DAILY PRN PO .CONSTIPATION; Start 03/05/19 at 18:00 Pantoprazole (Protonix Tab) 40 mg DAILY@06 PO Last administered on 03/07/19at 05:26; Admin Dose 40 MG; Start 03/06/19 at 06:00 Heparin Sodium (Porcine) (Heparin (5000 Units/1ml)) 5,000 unit Q8 SC Last administered on 03/07/19at 05:33; Admin Dose 5,000 UNIT; Start 03/05/19 at 22:00 Insulin Aspart (Novolog Insulin Pen) NOVOLOG *MILD* ALGORITHM WITH MEALS BEDTIME SC Last administered on 03/07/19at 09:08; Admin Dose 1 UNIT; Start 03/05/19 at 18:00 Miscellaneous Information 1 ea NOTE XX ; Start 03/05/19 at 18:30 Glucose (Glutose) 15 gm Q15M PRN PO DECREASED GLUCOSE; Start 03/05/19 at 18:30 Glucose (Glutose) 22.5 gm Q15M PRN PO DECREASED GLUCOSE; Start 03/05/19 at 18:30 Dextrose (D50w Syringe) 25 ml Q15M PRN IV DECREASED GLUCOSE; Start 03/05/19 at 18:30 Dextrose (D50w Syringe) 50 ml Q15M PRN IV DECREASED GLUCOSE; Start 03/05/19 at 18:30 Glucagon (Glucagen) 1 mg Q15M PRN IM DECREASED GLUCOSE; Start 03/05/19 at 18:30 Glucose (Glutose) 15 gm Q15M PRN BUCCAL DECREASED GLUCOSE; Start 03/05/19 at 18:30 Hydralazine HCl (Apresoline) 10 mg Q4H PRN IV SBP > 170; Start 03/06/19 at 05:00 Losartan Potassium (Cozaar) 100 mg DAILY PO Last administered on 03/07/19at 09:25; Admin Dose 100 MG; Start 03/07/19 at 09:00 Dextrose/Sodium Chloride 1,000 ml @ 80 mls/hr [id number] IV ; Start 03/07/19 at 10:00; Stop 03/07/19 at 19:59 HELENA DA SILVA March 07, 2019 11:38
[2019-03-07] MEDS: ACETAMINOPHEN 325 MG TAB PO PRN ×2 (13:41→22:21)
[2019-03-07] MEDS ORDERED: IODIXANOL LOCM 100 ML BTL ONE (16:28)
[2019-03-07] MEDS ORDERED: LIDOCAINE 1% (MDV) 20 ML INJ ONE (16:28)
[2019-03-07] MEDS ORDERED: MIDAZOLAM 1 MG/ML 2 ML INJ ONE (16:29)
[2019-03-07] MEDS ORDERED: FENTAnyl 50 MCG/ML VIAL ONE (16:29)
[2019-03-07] MEDS ORDERED: SOD CHLORIDE 0.9% 500 ML ONE (17:24)
[2019-03-07] MEDS ORDERED: SOD CHLORIDE 0.9% 1,000 ML IV SCH (18:23)
--- NOTE | 2019-03-07 18:29 | OPR ---
Date/Time of Note Date/Time of Note DATE: 03/07/19 TIME: 18:24 Operative Report Procedure Date: March 07, 2019 Preoperative Diagnosis Abnormal stress test Postoperative Diagnosis [facility] Sur[facility] see signature line Desktop Operator Matthias Anesthesia Type: moderate sedation Estimated Blood Loss: minimal Transfusion none Specimen none Grafts/Implants none Complications none Procedure Description Procedure performed: 1. Left heart catheterization, selective right and left coronary angiogram 2. right femoral angiogram and closure of the right femoral artery using a [] perclose device 3. Abdominal angiogram and radiological supervision 4. Selective right and left renal angiography 5. moderate sedation for more than 60 minutes. Tour Manager: Margaux Ballesteros MD Indication:: 68-year-old gentleman with diabetes hypertension dyslipidemia family history of coronary artery who presented with chest pain syndrome. Stress level abnormal showing inferior ischemia. Patient also resistant hypertension with significant hypertension despite taking 3 blood pressure medications. Coronary angiography and renal angiography was recommended Findin. Left main coronary artery: Is normal. 2. Left anterior descending artery: Its a large size vessel and goes around the apex. It has 30-40 % stenosis proximally, and no significant stenosis of the mid LAD. 3. Left circumflex artery: Is nondominant and gives up to 1 obtuse marginal. It has no significant stenosis . 4. Right coronary artery: Is large and dominant vessel. It is very tortuous but has no significant stenosis. 5. LV pressure: 181/23; Aortic pressure by pull back is 188/86 6. Abdominal angiogram showed one right and one left renal artery 7. Selective renal angiography showed patent both right and left renal artery with no significant stenosis Written informed consent with obtained after risks benefits and alternatives discussed with the patient in detail. risks including but not limited to risk of infection vascular complications, bleeding complications, MO stroke arrhythmia renal failure at even were discussed with the patient in detail. Patient was brought into the cardiac solar lab technician and placed in supine position. Right and left groin area was prepped and draped in regular sterile fashion and then he was in anesthetized using 1% lidocaine. Right femoral artery was cannulated and using modified seldinger technique a 6 [place] sheath was placed in the right femoral artery. Right femoral angiogram was performed. JL4 catheter was advanced and engaged into the left main coronary artery and angiographic view was obtained. The JR4 catheter was advanced and engaged right coronary artery angiographic view was obtained. For was advanced to engage the left ventricle hemodynamics as recorded by pullback aortic pressure was measure d. Pigtail was then advanced into the abdominal aorta angiographic view was obtained. An JR4 catheter was advanced and engaged into the left renal artery and then into the right renal artery angiography of each renal artery was obtained. Cath and Glidewire were removed. Perclose was successfully deployed Patient tolerated procedure well with no complication. Patient is to be tra nsferred to recovery room in stable condition. contrast used: 105 cc Conclusions: Mild coronary artery disease Normal renal arteries with no evidence of renal artery stenosis Recommendation: Medical therapy MARGAUX BALLESTEROS MD [facility] MARGAUX BALLESTEROS MD March 07, 2019 18:29
[2019-03-07] MEDS: DOXAZOSIN 4 MG TAB PO SCH (20:08)
[2019-03-07] MEDS: ATORVASTATIN 40 MG TAB PO SCH (20:08)
[2019-03-07] MEDS: INSULIN GLARGINE [LANTus] (100 UNITS/ML) SYG SC SCH (20:25)
[2019-03-08] VITALS (9 sets, daily range): BP systolic 130–169; BP diastolic 82–86; PULSE 57–71; RESP 18–20
[2019-03-08] MEDS: PANTOPRAZOLE (EC) 40 MG TAB PO SCH (05:49)
[2019-03-08] MEDS: HEPARIN 5,000 UNIT/1 ML VIAL SC SCH (05:57)
[2019-03-08] MEDS: INSULIN ASPART [NOVOLOG] 3 ML PEN SC SCH ×2 (07:52→11:19)
--- NOTE | 2019-03-08 08:14 | CONS ---
Consult Date/Type/Reason Admit Date/Time March 07, 2019 at 11:32 Initial Consult Date 03/05/19 Type of Consultation: cv Requesting Provider: NEIL WALLACE MD Date/Time of Note DATE: 03/08/19 TIME: 08:13 Subjective Cardiology follow-up progress note Subjective: Discussed with the staff. Patient with no chest pain or pressure now. No palpitation no groin pain or bleeding . Objective:. General: no acute distress HEENT: NC/AT. pupils are equal. round. NECK: NO JVD. no stridor. CV: RRR. systolic murmur; no gallop or rubs. PULM: no wheezing or rhonchi. GI: SOFT, NT, ND, no rebound or guarding Extremity: trace B/L LE edema. no clubbing. neuro: awake and alert, OX3. Psych: calm and pleasant rectal: deferred : normal Vascular: right femoral no bleeding or hematoma Echocardiogram was reviewed. See my report Lexiscan stress test showed: 1. Positive myocardial perfusion scan. 2. Mild reversible ischemia along the basal to mid inferolateral wall. 3. Diminished inferior wall motion with depressed ejection fraction of 45%. Objective Vitals Vital Signs Date Temp Pulse Resp B/P (MAP) Pulse Ox O2 O2 Flow FiO2 Time Delivery Rate 03/08/19 98.6 59 20 169/86 94 07:37 (113) 03/07/19 Room Air 19:22 03/07/19 2.0 08:16 Intake and Output 03/07/19 03/07/19 03/08/19 1515:00 23:00 07:00 IntakeIntake Total 1050 ml 1000 ml OutputOutput Total 700 ml 2950 ml BalanceBalance 350 ml -1950 ml Results/Medications Result Diagram: 03/08/19 0741 03/07/19 0622 Results 24 hrs Laboratory Tests Test 03/07/19 08:35 03/07/19 13:35 03/07/19 20:06 03/08/19 07:41 Bedside Glucose 151 135 219 White Blood Count 5.7 Red Blood Count 5.45 Hemoglobin 11.5 L Hematocrit 36.0 L Mean Corpuscular Volume 66.1 L Mean Corpuscular 21.1 L Hemoglobin Mean Corpuscular 31.9 L Hemoglobin Concent Red Cell Distribution 16.2 H Width Platelet Count 235 Mean Platelet Volume 9.9 Immature Granulocytes % 0.200 Neutrophils % 48.9 Lymphocytes % 37.8 Monocytes % 9.6 Eosinophils % 3.0 Basophils % 0.5 Nucleated Red Blood 0.0 Cells % Immature Granulocytes # 0.010 Neutrophils # 2.8 Lymphocytes # 2.2 Monocytes # 0.6 Eosinophils # 0.2 Basophils # 0.0 Nucleated Red Blood 0.0 Cells # Test 03/08/19 07:51 Bedside Glucose 109 Home Meds Reported Medications Doxazosin Mesylate* (Doxazosin Mesylate*) 8 Mg Tablet, 8 MG PO HS, TAB 03/05/19 Verapamil Hcl* (Verapamil ER*) 240 Mg Tablet.er, 240 MG PO DAILY, TAB.SA 03/05/19 Metoprolol Succinate* (Toprol XL*) 25 Mg Tab.sr.24h, 25 MG PO DAILY, #30 TAB 03/05/19 Metformin Hcl* (Metformin Hcl*) 1,000 Mg Tablet, 1000 MG PO WITH BREAKFAST DINNE, #60 TAB 03/05/19 Valsartan* (Diovan*) 80 Mg Tablet, 80 MG PO DAILY, TAB 03/05/19 Atorvastatin* (Atorvastatin*) 40 Mg Tablet, 40 MG PO QHS, #30 TAB 03/05/19 Nabumetone* (Nabumetone*) 500 Mg Tablet, 500 MG PO NEEDED, TAB 03/05/19 Baclofen* (Baclofen*) 10 Mg Tablet, 10 MG PO NEEDED, TAB 03/05/19 Insulin Glargine* (Lantus*) 100 Unit/Ml Soln, 38 UNIT SC QHS, #1 VIAL 03/05/19 Discontinued Reported Medications Metformin Hcl* (Metformin Hcl*) 1,000 Mg Tablet, 1000 MG PO WITH BREAKFAST DINNE, #30 TAB 05/24/17 Insulin Glargine* (Lantus*) 100 Unit/Ml Soln, 52 UNIT SC QHS, #1 VIAL 05/24/17 Atorvastatin Calcium* (Atorvastatin Calcium*) 20 Mg Tablet, 20 MG PO QHS, #30 TAB 05/24/17 Verapamil Hcl* (Verapamil ER*) 240 Mg Tablet.er, 240 MG PO DAILY, TAB.SA 05/24/17 Valsartan* (Diovan*) 80 Mg Tablet, 80 MG PO DAILY, TAB 05/24/17 Atenolol* (Atenolol*) 50 Mg Tablet, 50 MG PO AM 02/16/13 Doxazosin Mesylate* (Doxazosin Mesylate*) 8 Mg Tablet, 8 MG PO HS 02/16/13 Medications Current Medications Atorvastatin Calcium (Lipitor) 40 mg QHS PO Last administered on 03/07/19 20:08; Admin Dose 40 MG; Start 03/05/19 at 21:00 Baclofen (Lioresal) 10 mg TID PRN PO muscle spasms; Start 03/05/19 at 18:00 Doxazosin Mesylate (Cardura) 8 mg HS PO Last administered on 03/07/19 20:08; Admin Dose 8 MG; Start 03/05/19 at 21:00 Insulin Glargine (Lantus) 38 units QHS SC Last administered on 03/07/19 20:25; Admin Dose 38 UNITS; Start 03/05/19 at 21:00 Metoprolol Succinate (Toprol Xl) 25 mg DAILY PO Last administered on 03/07/19 09:24; Admin Dose 25 MG; Start 03/06/19 at 09:00 Verapamil HCl (Isoptin Sr) 240 mg DAILY PO Last administered on 03/07/19 09:25; Admin Dose 240 MG; Start 03/06/19 at 09:00 IV Flush (NS 3 ml) 3 ml PER PROTOCOL IV ; Start 03/05/19 at 18:00 Ondansetron HCl (Zofran Inj) 4 mg Q6H PRN IV NAUSEA/VOMITING; Start 03/05/19 at 18:00 Aspirin (Aspirin) 81 mg DAILY PO Last administered on 03/07/19 09:25; Admin Dose 81 MG; Start 03/06/19 at 09:00 Nitroglycerin (Nitroglycerin (Sl Tab) 0.4 Mg) 1 tab Q5M PRN SL .CHEST PAIN; Start 03/05/19 at 18:00 Acetaminophen (Tylenol Tab) 650 mg Q6H PRN PO .PAIN 1-3 OR TEMP Last administered on 03/07/19 22:21; Admin Dose 650 MG; Start 03/05/19 at 18:00 Acetaminophen/ Hydrocodone Bitart (Virgin (5/325)) 1 tab Q6H PRN PO .PAIN 4-6 Last administered on 5/2/19at 02:56; Admin Dose 1 TAB; Start 03/05/19 at 18:00 Morphine Sulfate (morphine) 2 mg Q4H PRN IV .PAIN 7-10; Start 03/05/19 at 18:00 Docusate Sodium (Colace) 100 mg Q12H PRN PO .CONSTIPATION; Start 03/05/19 at 18:00 Magnesium Hydroxide (Milk Of Mag) 30 ml DAILY PRN PO .CONSTIPATION; Start 03/05/19 at 18:00 Pantoprazole (Protonix Tab) 40 mg DAILY@06 PO Last administered on 03/08/19at 05:49; Admin Dose 40 MG; Start 03/06/19 at 06:00 Heparin Sodium (Porcine) (Heparin (5000 Units/1ml)) 5,000 unit Q8 SC Last administered on 03/08/19at 05:57; Admin Dose 5,000 UNIT; Start 03/05/19 at 22:00 Insulin Aspart (Novolog Insulin Pen) NOVOLOG *MILD* ALGORITHM WITH MEALS BEDTIME SC Last administered on 03/07/19at 20:26; Admin Dose 1 UNIT; Start 03/05/19 at 18:00 Miscellaneous Information 1 ea NOTE XX ; Start 03/05/19 at 18:30 Glucose (Glutose) 15 gm Q15M PRN PO DECREASED GLUCOSE; Start 03/05/19 at 18:30 Glucose (Glutose) 22.5 gm Q15M PRN PO DECREASED GLUCOSE; Start 03/05/19 at 18:30 Dextrose (D50w Syringe) 25 ml Q15M PRN IV DECREASED GLUCOSE; Start 03/05/19 at 18:30 Dextrose (D50w Syringe) 50 ml Q15M PRN IV DECREASED GLUCOSE; Start 03/05/19 at 18:30 Glucagon (Glucagen) 1 mg Q15M PRN IM DECREASED GLUCOSE; Start 03/05/19 at 18:30 Glucose (Glutose) 15 gm Q15M PRN BUCCAL DECREASED GLUCOSE; Start 03/05/19 at 18:30 Hydralazine HCl (Apresoline) 10 mg Q4H PRN IV SBP > 170; Start 03/06/19 at 05:00 Losartan Potassium (Cozaar) 100 mg DAILY PO Last administered on 03/07/19at 09:25; Admin Dose 100 MG; Start 03/07/19 at 09:00 Hydrochlorothiazide (Hydrochlorothiazide) 12.5 mg DAILY PO ; Start 03/08/19 at 09:00 Assessment/Plan Hospital Course (Demo Recall) Chest pain with abnormal stress test: Coronary angiography did not show any significant obstructive coronary artery disease. Continue medical therapy Resistant hypertension : No evidence of renal artery stenosis on the angiography diabetes dyslipidemia Strong family history of coronary artery disease Abnormal stress test Recommendation: Continue with aspirin and beta-migel. Continue with losartan 100 qd Diabetic management as per internal medicine. Hydrochlorothiazide was added as well DC planning when okay from internal medicine standpoint. I will try to get authorization to have an outpatient follow-up and adjustment of medication in 1 to 2 weeks Thank you for his referral. We will continue to follow along with you MARGAUX HOPE MD MERGED WITH [facility] MARGAUX HOPE MD March 08, 2019 08:14
[2019-03-08] MEDS: LOSARTAN 50 MG TAB PO SCH (08:18)
[2019-03-08] MEDS: VERAPAMIL (SR) 120 MG TAB PO SCH (08:18)
[2019-03-08] MEDS: METOPROLOL (XL) 25 MG TAB PO SCH (08:19)
[2019-03-08] MEDS: ASPIRIN 81 MG TAB PO SCH (08:19)
[2019-03-08] MEDS ORDERED: HYDROCHLOROTHIAZIDE 12.5 MG CAP PO SCH (09:00)
[2019-03-08] MEDS ORDERED: LINA5TAB PO (13:22)
[2019-03-08] MEDS ORDERED: VERA180C2 PO (13:22)
[2019-03-08] MEDS ORDERED: NOVO3I SC (13:22)
[2019-03-08] MEDS ORDERED: NITR0.4T32 SL (13:22)
[2019-03-08] MEDS ORDERED: ASPI-831 PO (13:22)
[2019-03-08] MEDS ORDERED: HYDR25TA6 PO (13:22)
[2019-03-08] MEDS ORDERED: LANT3I SC (13:24)
--- NOTE | 2019-03-08 13:26 | PDOCDIS ---
Discharge Instructions CONDITION Aloww4Lr Patient Condition: Aaded9g Stable HOME CARE INSTRUCTIONS: Qanbz5Hw Diet Instructions: Zfiea2g Low Fat /Cholesterol Mwdzu8Rt Special Diet: Uumwm1r diabetic diet, 1800 calories a day ACTIVITY: Ebhen5Od Activity Restrictions: Qtptr5v Slowly Increase Activity Rest between Activity FOLLOW UP/APPOINTMENTS Follow-up Plan 1. you may follow up with the cannon fire direction specialist, Dr Ballesteros, if your insurance approves it Name, Degree : Raymundo Ballesteros MD Specialty : Cardiology Office Address : [address] [place] [address] Office Office otherwise your PCP may refer you to a cannon fire direction specialist approved by your insurance 2. Followup with your primary doctor within the next 1-2 weeks. If you don't have one please let someone know, we can give you resources that may help you pick one. You may call Dr Josiah Bernardo's office. he's accepting new patients Name, Degree: Josiah Bernardo MD Specialty: Internal Medicine Comments: Office Address: [address] [place] [address] Office Office You may also call your insurance company to assign one to you. Review your medication list with your nurse before leaving and if you need new prescriptions please let your nurse know. I may have made changes to your home medications or given you new p rescriptions, please let your primary doctor know as well. Stay compliant with your medications and report any side effects to your PCP or pharmacist. Return to the ER if you have any concerns and cannot reach your doctors or call your insurance company, they usually have a nurse that can help you. HELENA DA SILVA March 08, 2019 13:26
[2019-03-08] MEDS ORDERED: LINAGLIPTIN 5 MG TABLET PO SCH (13:30)
[2019-03-08] MEDS ORDERED: LOSA100T15 PO (15:10)
[2019-03-08] MEDS ORDERED: ACCU-CHEK XX SCH (17:25)
[2019-03-08] MEDS ORDERED: INSULIN ASPART [NOVOLOG] 3 ML PEN SC SCH (17:55)
[2019-03-08] MEDS ORDERED: INSULIN GLARGINE [LANTus] (100 UNITS/ML) SYG SC SCH (21:00)
--- NOTE | 2019-03-10 09:18 | DS ---
DATE OF ADMISSION: 03/07/2019 DATE OF DISCHARGE: 03/08/2019 FINAL DIAGNOSES: The patient presented with left-sided chest pain/pressure, admitted and managed for the followin. Chest pain: The patient underwent abnormal stress test and subsequent coronary angiography. Cor onary angiography did not show any significant obstructive coronary artery disease. 2. Resistant hypertension, also status post renal artery angiogram without evidence of renal artery stenosis and angiography. 3. Diabetes type 2 with improved control. 4. Dyslipidemia, on statin. 5. Strong family history of coronary artery disease. CONSULTS ON THE CASE: Cardiology, Dr. Margaux Ballesteros. Intervention; the patient underwent Lexiscan st ress test which was abnormal and subsequent coronary as well as renal angiography, which the findings as stated above. DISPOSITION: To home to self-care activities as tolerated. The patient is encouraged to follow up w ith primary care doctor in the next 1-2 weeks and also with human development professor in the next 1 to 2 weeks as per his instructions. DISCHARGE MEDICATIONS: For a complete list of discharge medications, please review the patient's [facility]. DIET: Recommended diet is 1800-calorie ADA diet. Time spent on discharge coordination has been more than half an hour. Dictated By: HELENA DA SILVA MD BA/NTS Conf#: [id number] DID#: [id number] CC: MARGAUX BALLESTEROS MD; NEIL WALLACE MD; HELENA DA SILVA MD;*EndCC*
== END 2019-03-08 15:56 | disposition home or self-care (01) | DRG 287 ==
LOC: E/R 13:04 → TEL 16:40 → OBSVTOIN 03-07 11:32 → TEL 03-07 19:27
PROVIDERS: ADMIT Internal Medicine; ATTEND Family Medicine
PROC: B418YZZ Fluoroscopy of Bilateral Renal Arteries using Other Contrast (ICD-10-PCS; 2019-03-07)
PROC: B410YZZ Fluoroscopy of Abdominal Aorta using Other Contrast (ICD-10-PCS; 2019-03-07)
PROC: 4A023N7 Measurement of Cardiac Sampling and Pressure, Left Heart, Percutaneous Approach (ICD-10-PCS; principal; 2019-03-07 17:30)
PROC: B211YZZ Fluoroscopy of Multiple Coronary Arteries using Other Contrast (ICD-10-PCS; 2019-03-07 17:30)
PROC: B215YZZ Fluoroscopy of Left Heart using Other Contrast (ICD-10-PCS; 2019-03-07 17:30)
DX: I25.10 Atherosclerotic heart disease of native coronary artery without angina pectoris (principal); E11.9 Type 2 diabetes mellitus without complications; R07.89 Other chest pain; I10 Essential (primary) hypertension; E78.5 Hyperlipidemia, unspecified; E66.9 Obesity, unspecified; Z68.31 Body mass index [BMI] 31.0-31.9, adult; Z71.3 Dietary counseling and surveillance; Z79.4 Long term (current) use of insulin; Z79.82 Long term (current) use of aspirin; Z79.02 Long term (current) use of antithrombotics/antiplatelets; Z87.891 Personal history of nicotine dependence
CPT/HCPCS: 36415; 71045; 75625; 75726; 78452; 80048; 80053; 80061; 82550; 82553; 82962; 83036; 83735; 84443; 84484; 85025; 85610; 93005; 93017; 93306; 93458; 97161; 97166; G0378; A9500; A9505; C1760; C1887; J1644; J1815; J2250; J2785; J3010; J3475; J7030; J7040; J7042; Q9967